=== PATIENT | male | born 1960 | race Caucasian/White ===

== ENCOUNTER 2019-04-03 11:20 | Emergency (ER) | payer MEDICAID ==
[~2019-04-03] VITALS: Ht 188 cm; Wt 204.1 kg
[~2019-04-03 11:20] MED LIST: ASPI81EC PO; ATENOLOL; CYCL0.05OP OP; DUREZOL; MECL25 PO; METR250 PO; MICARDIS; OMEP20ER PO
[2019-04-03] MEDS ORDERED: ELIQUIS5 MG PO (11:33)
[2019-04-03 12:08] LABS: BASOPHILS ABSOLUTE AUTO 0.03 K/mm3 (0.00-0.23); BASOPHILS PERCENT AUTO 0 % (0-2); EOSINOPHILS ABSOLUTE AUTO 0.31 K/mm3 (0.00-0.68); EOSINOPHILS PERCENT AUTO 4 % (0-6); Hematocrit 46.8 % (37.0-53.0); Hemoglobin 15.8 g/dL (13.5-17.5); IMMATURE GRAN ABSOLUTE AUTO 0.03 K/mm3 (0.00-0.10); IMMATURE GRAN PERCENT AUTO 0 % (0-1); LYMPHOCYTES ABSOLUTE AUTO 1.56 K/mm3 (0.84-5.20); LYMPHOCYTES PERCENT AUTO 20 % (21-46); MONOCYTES ABSOLUTE AUTO 0.64 K/mm3 (0.16-1.47); MONOCYTES PERCENT AUTO 8 % (4-13); Mean Corpuscular HGB Conc 33.8 g/dL (31.5-36.5); Mean Corpuscular Volume 95 fL (80-100); Mean Platelet Volume 9.9 fL (9.1-12.4); NEUTROPHILS ABSOLUTE AUTO 5.16 K/mm3 (1.96-9.15); NEUTROPHILS PERCENT AUTO 67 % (41-73); Platelet Count 205 K/mm3 (150-400); RDW Standard Deviation 47.5 fL (35.1-46.3); Red Blood Cell Count 4.93 M/mm3 (4.30-5.90); White Blood Cell Count 7.73 K/mm3 (4.00-11.30)
[2019-04-03 12:28] LABS: Alanine Aminotransfer (ALT/SGP 39 U/L (12-78); Albumin, Blood 3.5 g/dL (3.4-5.0); Albumin/Globulin Ratio 0.9 (0.8-1.8); Alk Phos 49 U/L (50-136); Anion Gap 7 mmol/L (6-16); Aspartate Aminotrans (AST/SGOT 22 U/L (12-37); Bilirubin, Total 0.7 mg/dL (0.1-1.0); Blood Urea Nitrogen 17 mg/dL (8-24); Bun/Creatinine Ratio 15.5 (12.0-20.0); CO2, Blood 26 mmol/L (21-32); Calcium, Blood 8.6 mg/dL (8.5-10.1); Chloride, Blood 106 mmol/L (98-108); Glomerular Filtration Rate >60 (60-); Glucose, Blood 121 mg/dL (70-99); Potassium, Blood 4.1 mmol/L (3.5-5.5); Sodium, Blood 139 mmol/L (136-145); Total Protein, Blood 7.5 g/dL (6.4-8.2); Troponin I <0.015 ng/mL (0.000-0.040)
[2019-04-03] MEDS ORDERED: MOTION RELIEF25 MG PO (12:52)
== END 2019-04-03 13:09 | disposition home or self-care (01) ==
LOC: ER 11:20
PROVIDERS: Physician Assistant
DX: I48.91 Unspecified atrial fibrillation (principal); I10 Essential (primary) hypertension; Z79.899 Other long term (current) drug therapy; Z79.82 Long term (current) use of aspirin; Z87.891 Personal history of nicotine dependence
CPT/HCPCS: 36415; 70450; 71046; 80053; 84484; 85025; 93005; 93010; 99284-25

== ENCOUNTER → 2023-06-24 | Outpatient (CLI) | payer MEDICARE, OTHER ==
[~2023-06-24] MED LIST changes: +ELIQUIS5 MG PO; +MOTION RELIEF25 MG PO
== END ==
LOC: LAB SHORT 14:02 → LAB 14:02
DX: J02.9 Acute pharyngitis, unspecified (principal)
CPT/HCPCS: 87081

== ENCOUNTER 2023-07-12 18:53 | Inpatient (IN) | payer MEDICARE, OTHER ==
[~2023-07-12] VITALS: Ht 188 cm; Wt 232.0 kg
[2023-07-12] MEDS ORDERED: CEPH500 PO (19:26)
[2023-07-12 19:34] LABS: pH Blood Venous 7.22 (7.34-7.37)
[2023-07-12 19:35] LABS: Base Excess Venous 0.9 mmol/L; PCO2 Venous 69.8 mmHg (38-42)
[2023-07-12] MEDS ORDERED: Ipratropium/Albuterol SulF 2.5-0.5MG/3 ML Amp INH ONE (19:40)
[2023-07-12] MEDS ORDERED: Furosemide 10 MG/ML 4ML Vial IV ONE (19:40)
[2023-07-12 19:42] LABS: BASOPHILS ABSOLUTE AUTO 0.06 K/mm3 (0.00-0.23); BASOPHILS PERCENT AUTO 0 % (0-2); EOSINOPHILS PERCENT AUTO 0 % (0-6); Hemoglobin 17.1 g/dL (13.5-17.5); IMMATURE GRAN ABSOLUTE AUTO 0.36 K/mm3 (0.00-0.10); IMMATURE GRAN PERCENT AUTO 2 % (0-1); LYMPHOCYTES ABSOLUTE AUTO 1.35 K/mm3 (0.84-5.20); LYMPHOCYTES PERCENT AUTO 8 % (21-46); MONOCYTES ABSOLUTE AUTO 1.75 K/mm3 (0.16-1.47); MONOCYTES PERCENT AUTO 10 % (4-13); Mean Corpuscular HGB 30.2 pg (26.0-34.0); Mean Corpuscular HGB Conc 30.3 g/dL (31.5-36.5); Mean Corpuscular Volume 100 fL (80-100); Mean Platelet Volume 10.5 fL (9.1-12.4); NEUTROPHILS ABSOLUTE AUTO 13.74 K/mm3 (1.96-9.15); NEUTROPHILS PERCENT AUTO 80 % (41-73); NRBC ABSOLUTE 0.12 K/mm3 (0.00-0.02); NRBC Auto 0.7 /100 WBC (0.0-0.2); Platelet Count 230 K/mm3 (150-400); RDW Coefficient Variation 16.2 % (11.7-14.2); RDW Standard Deviation 57.4 fL (35.1-46.3); Red Blood Cell Count 5.67 M/mm3 (4.30-5.90); White Blood Cell Count 17.26 K/mm3 (4.00-11.30)
[2023-07-12 19:46] LABS: Hematocrit 56.5 % (37.0-53.0)
[2023-07-12 19:54] LABS: Magnesium, Blood 2.3 mg/dL (1.6-2.4)
[2023-07-12] MEDS ORDERED: CefTRIAXone Sodium 1,000 MG in NS 50 ML IV ONE (20:15)
[2023-07-12] MEDS ORDERED: Azithromycin 500 MG in NS 250 ML IV ONE (20:15)
[2023-07-12] MEDS ORDERED: Diltiazem HCl 5 MG / ML 5ML Vial IV ONE (20:30)
[2023-07-12 20:41] LABS: Albumin, Blood 3.3 g/dL (3.4-5.0); Albumin/Globulin Ratio 0.7 (0.8-1.8); Bilirubin, Total 1.9 mg/dL (0.1-1.0); Bun/Creatinine Ratio 16.3 (12.0-20.0); Creatinine, Blood 2.39 mg/dL (0.60-1.20); Potassium, Blood 5.7 mmol/L (3.5-5.5); Total Protein, Blood 8.3 g/dL (6.4-8.2)
[2023-07-12 21:52] LABS: Base Excess Venous 3.4 mmol/L; Bicarbonate Venous 24.6 mmol/L (24.0-30.0); PCO2 Venous 75.5 mmHg (38-42); pH Blood Venous 7.22 (7.34-7.37)
[2023-07-12] MEDS ORDERED: Apixaban 5 MG Tab PO SCH (22:00)
[2023-07-12] MEDS ORDERED: Acetaminophen 325 MG TABLET PO PRN (22:00)
[2023-07-12] MEDS ORDERED: FLU VACC QS2023-24(6MOS UP)/PF 60 MCG/0.5 ML SYRINGE IM ONE (22:00)
[2023-07-12] MEDS ORDERED: Furosemide 10 MG/ML 4ML Vial IV SCH (22:00)
[2023-07-12 22:10] LABS: Influenza A, PCR NEGATIVE (NEGATIVE); Influenza B, PCR NEGATIVE (NEGATIVE); Resp Syncytial Virus, PCR NEGATIVE (NEGATIVE); SARS-Cov-2 (COVID-19) PCR, MMC NEGATIVE (NEGATIVE)
[2023-07-12] MEDS ORDERED: dilTIAZem HCL 125 MG in Dextrose 5% 100 ML IV SCH (22:30)
[2023-07-12 22:59] LABS: Source, Urine Foley catheter
[2023-07-12] MEDS ORDERED: Naloxone HCl 1MG / ML 2ML SYR IV ONE (23:00)
[2023-07-12 23:03] LABS: Blood, Urine 5+ (Neg); Glucose Qualitative, Urine Neg (Neg); Ketones, Urine 1+ (Neg); Leukocyte Esterase, Urine 3+ (Neg); Nitrite, Urine Pos (Neg); Protein, Urine 3+ (Neg); Specific Gravity, Urine 1.025 (1.003-1.022); Urobilinogen, Urine 4+ (Normal)
[2023-07-12 23:08] LABS: Appearance, Urine Cloudy (Clear); Bilirubin, Urine 2+ (Neg); Color, Urine Amber (P-Yellow)
[2023-07-12 23:11] LABS: Amorphous Light (0-Heavy); Bacteria Many /hpf; Hyaline Casts 0-2 /lpf (0-2); Mucus Heavy (0-Heavy); Squamous Epithelial Cells Few /hpf (Few); White Blood Cells, Urine 25-50 /hpf (0-5)
[2023-07-12 23:31] LABS: U Amphetamine Screen Not Detected; U Barbituate Screen Not Detected; U Benzodiazapine Screen Not Detected; U Buprenorphine Screen Not Detected; U Cannabinoids Screen Not Detected; U Cocaine Screen Not Detected; U Methadone Screen Not Detected; U Methamphetamine Screen Not Detected; U Opiates Screen Not Detected; U Oxycodone Screen Not Detected; U Phencyclidine Screen Not Detected
[2023-07-13] VITALS (94 sets, daily range): BP systolic 45–140; BP diastolic 21–98
[2023-07-13 01:25] LABS: Base Excess Venous 2.6 mmol/L; Bicarbonate Venous 23.8 mmol/L (24.0-30.0); PCO2 Venous 66.6 mmHg (38-42)
[2023-07-13 01:26] LABS: pH Blood Venous 7.26 (7.34-7.37)
[2023-07-13] MEDS ORDERED: Naloxone HCl 1MG / ML 2ML SYR IV ONE (02:30)
[2023-07-13] MEDS ORDERED: NS 1,000 ML IV SCH (02:50)
[2023-07-13 03:00] LABS: Base Excess Venous -0.1 mmol/L; Bicarbonate Venous 20.9 mmol/L (24.0-30.0); PCO2 Venous 67.3 mmHg (38-42); pH Blood Venous 7.22 (7.34-7.37)
[2023-07-13] MEDS ORDERED: Sodium Bicarb 8.4% 1 MEQ/ML 50 ML Vial IV ONE (03:15)
[2023-07-13 03:24] LABS: BASOPHILS ABSOLUTE AUTO 0.04 K/mm3 (0.00-0.23); BASOPHILS PERCENT AUTO 0 % (0-2); EOSINOPHILS PERCENT AUTO 0 % (0-6); Hematocrit 50.9 % (37.0-53.0); Hemoglobin 15.5 g/dL (13.5-17.5); IMMATURE GRAN ABSOLUTE AUTO 0.12 K/mm3 (0.00-0.10); IMMATURE GRAN PERCENT AUTO 1 % (0-1); LYMPHOCYTES ABSOLUTE AUTO 1.37 K/mm3 (0.84-5.20); LYMPHOCYTES PERCENT AUTO 8 % (21-46); MONOCYTES ABSOLUTE AUTO 1.79 K/mm3 (0.16-1.47); MONOCYTES PERCENT AUTO 11 % (4-13); Mean Corpuscular HGB 30.6 pg (26.0-34.0); Mean Corpuscular HGB Conc 30.5 g/dL (31.5-36.5); Mean Corpuscular Volume 100 fL (80-100); NEUTROPHILS ABSOLUTE AUTO 13.74 K/mm3 (1.96-9.15); NEUTROPHILS PERCENT AUTO 81 % (41-73); NRBC ABSOLUTE 0.06 K/mm3 (0.00-0.02); NRBC Auto 0.4 /100 WBC (0.0-0.2); Platelet Count 181 K/mm3 (150-400); RDW Coefficient Variation 15.9 % (11.7-14.2); RDW Standard Deviation 57.8 fL (35.1-46.3); Red Blood Cell Count 5.07 M/mm3 (4.30-5.90); White Blood Cell Count 17.06 K/mm3 (4.00-11.30)
[2023-07-13 03:51] LABS: Albumin/Globulin Ratio 0.7 (0.8-1.8); Bilirubin, Total 1.6 mg/dL (0.1-1.0); Bun/Creatinine Ratio 18.4 (12.0-20.0); Calcium, Blood 7.8 mg/dL (8.5-10.1); Creatinine, Blood 2.23 mg/dL (0.60-1.20); Globulin, Blood 4.2 g/dL (2.2-4.0); Potassium, Blood 5.3 mmol/L (3.5-5.5); Total Protein, Blood 7.2 g/dL (6.4-8.2)
[2023-07-13] MEDS ORDERED: Sodium Bicarb 8.4% 50 mEq Syringe IV ONE (04:00)
[2023-07-13 05:07] LABS: Bicarbonate Venous 26.3 mmol/L (24.0-30.0); PCO2 Venous 76.2 mmHg (38-42); pH Blood Venous 7.25 (7.34-7.37)
[2023-07-13] MEDS ORDERED: propofoL 100 ML IV SCH (05:30)
--- NOTE | 2023-07-13 05:30 | NUR ---
DR MAGALLON NOTIFED OF PT CRITICAL PH AND OVERALL WORSENING VBG. STATED HE WOULD BE TO THE BEDSIDE TO INTUBATE.
[2023-07-13] MEDS ORDERED: NS 1,000 ML IV ONE (05:53)
[2023-07-13] MEDS ORDERED: Pantoprazole Sodium 40 MG Injection IV SCH (06:00)
--- NOTE | 2023-07-13 07:33 | NUR ---
TIFFANY THOMAS PT WAS INTUBATED AT APPX 0541. ETT IS CURRENTLY INTACT AND PATENT TO THE VENT. CVL PLACED BY DR MAGALLON IN THE RIGHT IJ WELL. PLACEMENT WAS VERIFIED. REPORT WAS GIVEN AT BEDSIDE TO YOUSIF FAJARDO. PT IS AFIB ON THE ADAPTIVE PHYSICAL EDUCATION TEACHER. PT HAS A TEMP MARES INTACT PATENT AND DRAINING TO GRAVITY. BP HAVE BEEN ADEQUATE BUT LEVOPHED HAS BEEN ORDERED TO MAINTAIN MAP >65 IF NEEDED. PT HAS A RASH THAT DR HAWTHORNE IS AWARE OF AND HAS SEEN. OG TUBE WAS PLACED AFTER INTUBATION. PT WAS PLACED ON A BARIATRIC BED AT ADMISSION DUE TO HIS LARGE BODY HABITUS.
[2023-07-13 07:58] LABS: Anti-Xa UFH, PHA Monitoring <0.10 IU/mL; International Normalized Ratio 1.35; Prothrombin Time Results 13.9 Sec (9.7-11.5)
--- NOTE | 2023-07-13 08:21 | NUR ---
AM NOTE... ASSUMED CARE OF PT AT 0700. PT IS INTUBATED AC/PC: PEEP 10 AND 100% WITH O2 SATS>92% L/S A VERY DIM T/O. PROPOFOL WAS STARTED FOR VENT COMPLIANCE THIS WAS TITRATED UP FROM 20MCG QUICKLY UP TO 50MCG, RASS -1. LEVOPHED WAS STARTED AND IS CURRENTLY RUNNING AT 4MCG/MIN TO KEEP MAPS>65. HIS BLE HAVE 3+ EDEMA, THEY ARE SCALY, AND VERY DUSKY, PULSES FOUND WTIH DOPPLER. HE IS IN AFIB IN THE 100-110'S. PUPILS ARE PINPOINT AT THE TIME OF THIS ASSESSMENT. OG TUBE IS SET OT LIS, A SMALL AMOUNT OF BILE IS NOTED IN THE OG TUBE. PT HAS COPIOUS AMOUNTS OF ORAL SECRETIONS AND MODERATE AMOUNT OF THICK MAYS SECRETIONS SUCTIONED VIA THE ET TUBE. TEMP MARES IS PATENT AND DRAINING TO GRAVITY. WILL CONTINUE TO MONITOR.
[2023-07-13] MEDS ORDERED: Heparin Sodium,Porcine/0.5 NS 500 ML IV SCH (08:50)
[2023-07-13] MEDS ORDERED: fentaNYL citrate 25 MCG/ML 30ML Bag IV PRN ×2 (09:00→10:55)
[2023-07-13] MEDS ORDERED: Lactobacil 2-S.Thermo-Bifido 1 1 Cap PO SCH (09:00)
[2023-07-13] MEDS ORDERED: NS 250 ML IV PRN (09:20)
[2023-07-13 09:23] LABS: PCO2 Arterial 41.3 mmHg (35-45); PO2 Arterial 86.4 mmHg (80-100); pH Blood Arterial 7.44 (7.35-7.45)
[2023-07-13] MEDS ORDERED: Furosemide 10 MG/ML 4ML Vial IV ONE (11:30)
[2023-07-13] MEDS ORDERED: Magnesium Hydroxide Conc 10 ML UDC PT PRN (12:30)
[2023-07-13] MEDS ORDERED: Bisacodyl 10 MG Supp PR PRN (12:30)
[2023-07-13] MEDS ORDERED: Docusate Sodium 100 MG UDC PT PRN (12:30)
[2023-07-13] MEDS ORDERED: Thiamine HCl 100 MG Tab PT ONE (12:45)
--- NOTE | 2023-07-13 14:04 | NUR ---
TUBE FEEDS.... TUBE FEEDS STARTED AT 1400 PER ORDERS AT 25MLS/HR.
[2023-07-13] MEDS ORDERED: CefTRIAXone Sodium 1,000 MG in NS 50 ML IV SCH (15:00)
[2023-07-13] MEDS ORDERED: Azithromycin 500 MG in NS 250 ML IV SCH (15:00)
[2023-07-13] MEDS ORDERED: Hydrogen Peroxide 1.5 % Solution MT SCH (16:00)
[2023-07-13] MEDS ORDERED: Dose Adjust by Pharmacy XX STA (16:43)
[2023-07-13] MEDS ORDERED: Midazolam HCl 1MG / ML 2ML Vial XX ONE (16:58)
[2023-07-13] MEDS ORDERED: Ketamine HCl 100 MG / ML 5ML Vial XX ONE (16:58)
[2023-07-13] MEDS ORDERED: Rocuronium Bromide 10 MG/ML 5ML Injection IV ONE (16:58)
--- NOTE | 2023-07-13 18:12 | NUR ---
SHIFT SUMMARY... PT CONTINUES TO BE ON THE VENT WITH NEW SETTINGS OF AC/VC:20/470/10/80% WITH O2 SATS>92%. L/S CONTINUES TO BE VERY DIM. HEPARIN DRIP WAS STARTED PER ORDERS AT 15U/KG/HR. LEVOPHED DRIP WAS STOPPED AT 1715 WITH MAPS>65. PROPOFOL WAS DECREASED DOWN TO 40MCG/KG, FENTANYL NUTRITIONAL SERVICES DIRECTOR IS RUNNING AT 75MCG/HR. MARES IS PATENT AND DRAINING TO GRAVITY. ECHO AND ABD US WERE DONE PER ORDERS RESULTS IN THE CHART. TUBE FEEDS STARTED PER ORDERS AT 25MLS/HR. THE PT'S DAUGHTER AND SON WERE AT THE BEDSIDE OFF AND ON T/O THIS SHIFT. CALL LIGHT IN REACH WILL CONTINUE TO MONITOR UNTIL REPORT IS GIVEN TO ONCOMING RN.
[2023-07-13] MEDS ORDERED: Chlorhexidine Mouth Care 15 ML UDC MT SCH (20:00)
[2023-07-13] MEDS ORDERED: Folic Acid 1 MG TAB PT SCH (21:00)
[2023-07-13] MEDS ORDERED: Thiamine HCl 100 MG Tab PT SCH (21:00)
[2023-07-14] VITALS (85 sets, daily range): BP systolic 82–163; BP diastolic 53–115
[2023-07-14] MEDS ORDERED: Clarify Drug Order XX ONE ×2 (00:40→05:05)
[2023-07-14 04:41] LABS: BASOPHILS ABSOLUTE AUTO 0.04 K/mm3 (0.00-0.23); BASOPHILS PERCENT AUTO 0 % (0-2); EOSINOPHILS ABSOLUTE AUTO 0.15 K/mm3 (0.00-0.68); EOSINOPHILS PERCENT AUTO 1 % (0-6); Hematocrit 46.2 % (37.0-53.0); Hemoglobin 14.8 g/dL (13.5-17.5); IMMATURE GRAN ABSOLUTE AUTO 0.11 K/mm3 (0.00-0.10); IMMATURE GRAN PERCENT AUTO 1 % (0-1); LYMPHOCYTES ABSOLUTE AUTO 1.72 K/mm3 (0.84-5.20); LYMPHOCYTES PERCENT AUTO 12 % (21-46); MONOCYTES PERCENT AUTO 8 % (4-13); Mean Corpuscular HGB 30.1 pg (26.0-34.0); Mean Platelet Volume 10.1 fL (9.1-12.4); NEUTROPHILS ABSOLUTE AUTO 10.83 K/mm3 (1.96-9.15); NEUTROPHILS PERCENT AUTO 78 % (41-73); NRBC ABSOLUTE 0.02 K/mm3 (0.00-0.02); NRBC Auto 0.1 /100 WBC (0.0-0.2); Platelet Count 160 K/mm3 (150-400); RDW Coefficient Variation 16.4 % (11.7-14.2); RDW Standard Deviation 55.3 fL (35.1-46.3); Red Blood Cell Count 4.92 M/mm3 (4.30-5.90); White Blood Cell Count 13.95 K/mm3 (4.00-11.30)
[2023-07-14 04:43] LABS: Mean Corpuscular Volume 94 fL (80-100)
[2023-07-14 05:14] LABS: Albumin, Blood 2.4 g/dL (3.4-5.0); Albumin/Globulin Ratio 0.7 (0.8-1.8); Bilirubin, Total 1.7 mg/dL (0.1-1.0); Bun/Creatinine Ratio 27.2 (12.0-20.0); Calcium, Blood 7.9 mg/dL (8.5-10.1); Creatinine, Blood 1.84 mg/dL (0.60-1.20); Globulin, Blood 3.5 g/dL (2.2-4.0); Magnesium, Blood 1.9 mg/dL (1.6-2.4); Potassium, Blood 3.4 mmol/L (3.5-5.5); Total Protein, Blood 5.9 g/dL (6.4-8.2)
[2023-07-14] MEDS ORDERED: Potassium Chl 20MEQ/Water100ML 100 ML IV STA (07:19)
--- NOTE | 2023-07-14 08:00 | NUR ---
AM NOTE... ASSUMED CARE OF PT AT 0700, PT INTUBATED AND SEDATED ON 40MCG OF PROPOFOL AND 75MCG/HR FENTANYL HOUSE WORKER. LEVOPHED RUNNING AT 2MCG TO KEEP MAPS >65 THIS WAS STOPPED AT THE TIME OF THIS ASSESSMENT. ET TUBE IS 7.5 AND 24 AT THE TOP TEETH/GUMS. VENT SETTINGS ARE AC/VC: 20/470/10/80% WITH O2 SATS>90%. L/S COARSE IN THE UPPER LOBES AND DIM T/O MORE SO ON THE LEFT THAN THE RIGHT. HE IS IN AFIB IN THE 80'S-90'S, BP IS SOFT BUT STABLE WITH MAPS>65 OFF OF THE LEVOPHED. OG TUBE IS PATENT AND RUNNING TUBE FEEDS AT 25MLS/HR. BT PRESENT AND HYPOACTIVE, ABD IS LARGE AND SOFT TO PALPATION. TEMP MARES IS PATENT AND DRAINING DARK YELLOW URINE WITH SEDIMENT TO GRAVITY. WILL CONTINUE TO MONITOR.
--- NOTE | 2023-07-14 08:04 | NUR ---
SHIFT SUMMERY NO ACUTE CHANGES TO PT PLAN OF CARE OVERNIGHT
[2023-07-14] MEDS ORDERED: Miconazole Nitrate 2% 85 GM PWD TOP SCH (09:00)
[2023-07-14] MEDS ORDERED: Tetrahydrozoline 0.05% Opth Soln 15 ML BOTHEYES PRN (09:00)
[2023-07-14] MEDS ORDERED: Furosemide 10 MG/ML 4ML Vial IV SCH (09:00)
[2023-07-14] MEDS ORDERED: Atropine Sulfate 1% Opth Soln 2ML BTL SL PRN (10:10)
[2023-07-14] MEDS ORDERED: HYDROmorphone HCl/Pf 1MG SYR IV PRN (10:10)
[2023-07-14] MEDS ORDERED: Morphine Sulfate 20 MG/1ML 1 ML Oral Syringe SL PRN (10:10)
[2023-07-14] MEDS ORDERED: Scopolamine Hydrobromide Patch TOP PRN (10:10)
[2023-07-14] MEDS ORDERED: Morphine Sulfate 10 MG/ML 1MLSYR INH PRN (10:10)
[2023-07-14] MEDS ORDERED: OxyCODONE HCl Soln 20 MG/ML 1 ML Oral SYR SL PRN (10:10)
[2023-07-14] MEDS ORDERED: Haloperidol Lactate Inj. 5 MG/ML Injection IV PRN (10:10)
[2023-07-14] MEDS ORDERED: Acetaminophen 650 MG Supp PR PRN (10:10)
[2023-07-14] MEDS ORDERED: Morphine Sulfate 10 MG/ML 1MLSYR IV PRN (10:10)
[2023-07-14] MEDS ORDERED: LORazepam 2 MG/ML 1ML Injection IV PRN (10:10)
--- NOTE | 2023-07-14 10:20 | NUR ---
Comfort care Spoke with nursing after the ICU IDT meeting this morning. Family has decided to place pt on comfort care. Orders have already been placed. No family currently in pt's room. Nursing will contact PC for support for family prn. Pt to remain on ventilator until family is ready. PC to remain available to assist with pt/family support and symptom management prn.
[2023-07-14] MEDS ORDERED: dilTIAZem HCL 125 MG in Dextrose 5% 100 ML IV SCH (13:05)
[2023-07-14] MEDS ORDERED: Heparin Sodium,Porcine/0.5 NS 500 ML IV SCH (13:15)
[2023-07-14] MEDS ORDERED: CefTRIAXone Sodium 1,000 MG in NS 50 ML IV SCH (13:25)
[2023-07-14] MEDS ORDERED: Azithromycin 500 MG in NS 250 ML IV SCH (13:25)
[2023-07-14 13:59] LABS: PCO2 Arterial 45.3 mmHg (35-45); PO2 Arterial 79.4 mmHg (80-100); pH Blood Arterial 7.42 (7.35-7.45)
--- NOTE | 2023-07-14 14:32 | NUR ---
Called to ICU. Decision was made earlier today for comfort care. Pt was extubated, woke up and was alert and told the bedside nurse that he didn't want to and that he wanted everything done. Pt was on bipap, resting with eyes closed with a HR in the 140-150s when this news writer went to ICU. Waiting on Dr. Edwards to come and speak with pt and family to determine goals of care. Went to ICU waiting room and spoke with family members. Pt's mother, pt's brother, Michael, son, Shaheed, and dtr Ama are in waiting room. Updated them that Colton is awake and is telling staff he doesn't want to . Shaheed states that they (he and sister Ama) made the decision for comfort care based on the many years of their father's past statements and personal choices. Emotional support given. Shaheed states that they want to support what Colton wants, however they want to make sure he understands the ramifications of the decision he is making. Pt's brother Michael spoke with pt after he was extubated this afternoon and Michael stated that Colton told he that he wants to live. Family members verbalize understanding that Colton's recovery could be a very long road and that he may require a higher level of care then he had prior to this admission. Shaheed and Ama went to pt's room to spend time with him after this news writer spoke with them. They are waiting for Dr. Edwards to come and speak to all of them to determine a plan of care going forward. PC will follow and assist with advanced care planning and symptom managment as needed.
--- NOTE | 2023-07-14 15:02 | NUR ---
PT UPDATE.... AT AROUND 1000 THE PT'S DAUGHTER AND SON WERE AT THE BEDSIDE WITH THE PT. THEY FELT THAT THE PT WOULD NOT WANT TO BE ON THE VENT AND THE [facility] CONSEQUENCES THAT WOULD FOLLOW IF THE PT WERE TO NEED A TRACH AND [facility] CARE/REHAB. THE PT'S FAMILY PLANNED TO MAKE THE PT COMFORT CARE AND EXTUBATE. DR. PRINCE WAS AWARE OF THIS PLAN. THE PT WAS CHANGED TO A DNR AND AT 1240 HE WAS EXTUBATED. ONCE HE WAS EXTUBATED THE PT WAS ASSESSED AND NOTED TO BE A&Ox4, HE STATED THAT HE COULD NOT BREATH AND WANTED TO LIVE. THIS RN ASKED THE PT IF HE WERE TO STOP BREATHING OR HIS HEART STOP IF HE WANTED CPR AND BACK ON THE VENT WITH THE TUBE DOWN HIS THROAT, AND HE SAID "YES I WANT EVERYTHING DONE TO LIVE." DR. PRINCE WAS NOTIFIED, CODE STATUS WAS CHANGED BACK TO FULL CODE. HE QUICKLY WENT FROM 2L NC TO AN OXYMASK AT 15L THEN BIPAP AT 16/10 AND 100%. THE PT'S FAMILY WAS NOTIFIED OF THE CHANGE IN THE PT'S CONDITION AND HIS DECISION TO BE A FULL CODE. PT'S HR INCRESED FROM AFIB IN THE 710'S-90'S TO AFIB W/RVR 150'S-160'S, HE WAS STARTED ON THE CARDIZEM DRIP WHICH WAS TITRATED UP TO 15MG/HR, CURRENT HR IS IN THE 130'S-140'S BP IS STABLE WITH MAPS >75 AT THIS TIME. WILL CONTINUE TO MONITOR.
--- NOTE | 2023-07-14 15:45 | NUR ---
Returned to pt's room to check in on pt and family. Nursing reports Dr. Edwards met with pt and his family. Decision was made to continue care at this kwame. Pt status changed back to full code, discontinue comfort care. Son Shaheed and pt's mother are in agreement with pt's wishes at this time. Pt awake in room. Bipap in place, conversing with family at bedside. PC to remain available for symptom managment and advanced care planning as needed.
[2023-07-14] MEDS ORDERED: Furosemide 10 MG/ML 4ML Vial IV ONE (16:00)
--- NOTE | 2023-07-14 17:42 | NUR ---
SHIFT SUMMARY... PT CONTINUES TO BE A&Ox4, ON THE BIPAP, SETTINGS ARE 16/10 AND 100% WITH O2 SATS IN THE 90'S. THE HEPARIN DRIP WAS RESTARTED PER PHARMACY ORDERS. CARDIZEM DRIP IS RUNNING AT 20MG/HR, PT'S HR IS IN THE 110'S-120'S, BP IS STABLE WITH MAPS>75. PT'S MARES IS PATENT AND DRAINING TO GRAVITY. PT HAS NOT HAD A BM SINCE ADMIT. PT REFUSED REPOSITIONING SINCE 1400. CALL LIGHT IN REACH WILL CONTINUE TO MONITOR UNTIL REPORT IS GIVEN TO ONCOMING RN.
--- NOTE | 2023-07-14 23:18 | NUR ---
ASSUMED CARE OF PT FROM TANA VILLAVICENCIO AT 2300. REPORT RECEIVED. PT PRESENTS IN BED. BIPAP ON. WILL REVIEW CHART AND PLAN OF CARE FOR THIS PT.
[2023-07-15] VITALS (47 sets, daily range): BP systolic 85–134; BP diastolic 58–105
[2023-07-15 05:05] LABS: BASOPHILS ABSOLUTE AUTO 0.03 K/mm3 (0.00-0.23); BASOPHILS PERCENT AUTO 0 % (0-2); EOSINOPHILS ABSOLUTE AUTO 0.07 K/mm3 (0.00-0.68); EOSINOPHILS PERCENT AUTO 1 % (0-6); Hematocrit 46.5 % (37.0-53.0); Hemoglobin 14.8 g/dL (13.5-17.5); IMMATURE GRAN ABSOLUTE AUTO 0.12 K/mm3 (0.00-0.10); IMMATURE GRAN PERCENT AUTO 1 % (0-1); LYMPHOCYTES ABSOLUTE AUTO 1.47 K/mm3 (0.84-5.20); LYMPHOCYTES PERCENT AUTO 11 % (21-46); MONOCYTES ABSOLUTE AUTO 1.56 K/mm3 (0.16-1.47); MONOCYTES PERCENT AUTO 11 % (4-13); Mean Corpuscular HGB 30.3 pg (26.0-34.0); Mean Corpuscular HGB Conc 31.8 g/dL (31.5-36.5); Mean Corpuscular Volume 95 fL (80-100); Mean Platelet Volume 9.9 fL (9.1-12.4); NEUTROPHILS PERCENT AUTO 76 % (41-73); Platelet Count 171 K/mm3 (150-400); RDW Coefficient Variation 16.5 % (11.7-14.2); RDW Standard Deviation 57.1 fL (35.1-46.3); Red Blood Cell Count 4.88 M/mm3 (4.30-5.90); White Blood Cell Count 13.65 K/mm3 (4.00-11.30)
[2023-07-15] MEDS ORDERED: Dose Adjust by Pharmacy XX STA ×2 (05:28→12:50)
[2023-07-15 05:31] LABS: Albumin, Blood 2.5 g/dL (3.4-5.0); Albumin/Globulin Ratio 0.6 (0.8-1.8); Bun/Creatinine Ratio 30.8 (12.0-20.0); Calcium, Blood 8.2 mg/dL (8.5-10.1); Creatinine, Blood 1.56 mg/dL (0.60-1.20); Globulin, Blood 4.2 g/dL (2.2-4.0); Phosphorus, Blood 5.2 mg/dL (2.5-4.9); Potassium, Blood 4.1 mmol/L (3.5-5.5); Total Protein, Blood 6.7 g/dL (6.4-8.2)
--- NOTE | 2023-07-15 07:00 | NUR ---
ASSUMPTION OF CARE PT RECEIVING HEPARIN 16UNITS/KG/HR AND CARDIZEM 10MG/HR. HE WAKENS TO VERBAL STIMULI. HE IS ON BIPAP 16//80%. SINUS RHYTHM ON MONITOR WITH RATE IN 90S. BP STABLE. TEMP MARES PATENT AND DRAINING DARK YELLOW URINE TO GRAVITY. PT IN BARIATRIC BED, CALL LIGHT WITHIN REACH.
[2023-07-15] MEDS ORDERED: Azithromycin 500 MG in NS 250 ML IV SCH (09:00)
[2023-07-15] MEDS ORDERED: LevoFLOXacin 750 MG/D5W 150ML 150 ML IV SCH (09:00)
[2023-07-15] MEDS ORDERED: CefTRIAXone Sodium 1,000 MG in NS 50 ML IV SCH (09:00)
[2023-07-15] MEDS ORDERED: Magnesium Hydroxide Conc 10 ML UDC PO PRN (11:30)
[2023-07-15] MEDS ORDERED: Docusate Sodium 250 MG Cap PO SCH (11:30)
--- NOTE | 2023-07-15 13:12 | NUR ---
UPDATE PT TOLERATED BREAK FROM BIPAP WITH 12L HFNC FOR APPROXIMATELY AN HOUR. PT PASSED BEDSIDE SWALLOW WITHOUT DIFFICULTY. PT C/O FEELING CONSTIPATED, BOWEL REGIMEN STARTED. PT VISITS WITH BROTHER AT BEDSIDE. HE REPORTS FEELING TIRED AND WOULD LIKE TO REST, PLACED ON BIPAP WITH PREVIOUS SETTINGS 16/10/45%.
[2023-07-15] MEDS ORDERED: Metoprolol Succinate 25 MG TABCR PO SCH (13:35)
[2023-07-15] MEDS ORDERED: Apixaban 5 MG Tab PO SCH (14:00)
--- NOTE | 2023-07-15 17:58 | NUR ---
SHIFT SUMMARY PT HAS BEEN ON BIPAP FOR MOST OF THE DAY WITH SETTINGS 18/10/45%. HE HAS HAD TWO BREAKS FROM BIPAP WITH HFNC BETWEEN 12-14L. PT TOLERATES WELL BUT OCCASIONALLY REQUIRES REMINDERS TO BREATHE THROUGH HIS NOSE. HE REMAINS ALERT AND ORIENTED, ASSISTS WITH CARE ABLE. LUNGS ARE CLEAR, DIMINISHED. AFIB ON MONITOR WITH RATE IN 90S, BP STABLE. PT PASSED BEDSIDE SWALLOW. PT PROVIDED DINNER TRAY BUT ONLY ATE A FEW BITES. PT C/O FEELING CONSTIPATED THIS AM, BEGAN BOWEL REGIMEN. PT NOW HAS LIQUID STOOL. TEMP MARES PATENT AND DRAINING CLOUDY TEA URINE TO GRAVITY WITH 900ML OUTPUT THIS SHIFT. FAMILY AT BEDSIDE INTERMITTENTLY THROUGHOUT THE DAY. BED CONTROL AND CALL LIGHT WITHIN REACH.
--- NOTE | 2023-07-15 20:00 | NUR ---
ASSUMED CARE OF PT AT 1900. REPORT RECEIVED AT BEDSIDE. PT PRESENTS IN BED. WEARING HIGH FLOW O2. VISITING WITH FAMILY. PT ALERT AND ORIENTED, PLEASANT AND COOPERATIVE WITH CARE. WILL REVIEW CHART AND PLAN OF CARE FOR THIS PT.
[2023-07-16] VITALS (47 sets, daily range): BP systolic 72–131; BP diastolic 44–88
[2023-07-16 05:16] LABS: BASOPHILS ABSOLUTE AUTO 0.02 K/mm3 (0.00-0.23); BASOPHILS PERCENT AUTO 0 % (0-2); EOSINOPHILS ABSOLUTE AUTO 0.08 K/mm3 (0.00-0.68); EOSINOPHILS PERCENT AUTO 1 % (0-6); Hematocrit 45.4 % (37.0-53.0); Hemoglobin 14.2 g/dL (13.5-17.5); IMMATURE GRAN ABSOLUTE AUTO 0.09 K/mm3 (0.00-0.10); IMMATURE GRAN PERCENT AUTO 1 % (0-1); LYMPHOCYTES ABSOLUTE AUTO 1.08 K/mm3 (0.84-5.20); LYMPHOCYTES PERCENT AUTO 10 % (21-46); MONOCYTES ABSOLUTE AUTO 1.49 K/mm3 (0.16-1.47); MONOCYTES PERCENT AUTO 14 % (4-13); Mean Corpuscular HGB 30.3 pg (26.0-34.0); Mean Corpuscular HGB Conc 31.3 g/dL (31.5-36.5); Mean Corpuscular Volume 97 fL (80-100); Mean Platelet Volume 9.8 fL (9.1-12.4); NEUTROPHILS ABSOLUTE AUTO 8.02 K/mm3 (1.96-9.15); NEUTROPHILS PERCENT AUTO 75 % (41-73); Platelet Count 167 K/mm3 (150-400); RDW Coefficient Variation 16.4 % (11.7-14.2); RDW Standard Deviation 57.6 fL (35.1-46.3); Red Blood Cell Count 4.69 M/mm3 (4.30-5.90); White Blood Cell Count 10.78 K/mm3 (4.00-11.30)
[2023-07-16 05:41] LABS: Albumin, Blood 2.5 g/dL (3.4-5.0); Albumin/Globulin Ratio 0.6 (0.8-1.8); Bilirubin, Total 1.6 mg/dL (0.1-1.0); Bun/Creatinine Ratio 36.5 (12.0-20.0); Calcium, Blood 8.6 mg/dL (8.5-10.1); Creatinine, Blood 1.37 mg/dL (0.60-1.20); Globulin, Blood 4.5 g/dL (2.2-4.0); Magnesium, Blood 2.5 mg/dL (1.6-2.4); Phosphorus, Blood 4.8 mg/dL (2.5-4.9); Potassium, Blood 4.2 mmol/L (3.5-5.5)
--- NOTE | 2023-07-16 05:52 | NUR ---
PT HAS REMAINED ON BIPAP MASK THROUGHOUT THE NIGHT. HAS MAINTAINED O2 SATURATIONS > 90 PERCENT. NO COMPLAINTS OF DYSPNEA. PT HAS OCCASSIONAL MOIST COUGH. PROVIDED YAUNKEUR FOR PT TO SELF CLEAR HIS SECRETIONS. PT VOICES THIS IS HELPFUL. WILL CONTINUE TO MONITOR PT, AND WILL REPORT OFF TO ONCOMING RN.
--- NOTE | 2023-07-16 07:00 | NUR ---
ASSUMPTION OF CARE PT WAKENS TO VERBAL STIMULI. HE IS ON BIPAP 16/10/45%. PT TRANSITIONED TO 12L HFNC. SPO2 >93%, PT DENIES SOB AND VERBALIZES UNDERSTANDING OF BREATHING THROUGH HIS NOSE. PT IS ALERT AND ORIENTED, PARTICIPATES IN CONVERSATION WITH STAFF AND FAMILY AT BEDSIDE. AFIB ON MONITOR WITH RATE IN 80S-90S. BP STABLE WITH MAP >65. MARES PATENT AND DRAINING TEA COLORED URINE TO GRAVITY. BED CONTROL AND CALL LIGHT WITHIN REACH.
--- NOTE | 2023-07-16 13:00 | NUR ---
Met with Colton this afternoon in his room. He is on O2 by CO and had just finished eating. Allowed him to discuss his feelings of his current situation. Colton verbalized struggles with family relationships and stressors from his childhood growing up. He reports that he's 63 and that "Those things that happened then shouldn't bother me but they do." Offered to have therapist respiratory come and speak with him, he agreed that he would like that. Colton states he knows that he is the only one who can change his situation and that it's up to him to make the changes. Emotional support given. Nursing updated. Will place spiritual care consult. PC to follow for continued advanced care planning, symptom management and support.
--- NOTE | 2023-07-16 13:57 | NUR ---
Pastoral care visitation conducted. Pt was cordial and presented as welcoming upon introductory salutations. Pt proceeded to share about his current situation and well-being. Opportunity for reflection was given with validating feedback offered. Pt shared about his life struggles and history. Emotional guidance and continued empathic listening provided. Prayer was offered and readily accepted. Pt remained amiable and proceeded to rest. Pastoral support to remain available prospectively.
--- NOTE | 2023-07-16 17:17 | NUR ---
UPDATE PT HAS BEEN TOLERATING BREAKS FROM THE BIPAP AND WEARING 12L HFNC. PT REMAINS ALERT AND ORIENTED WITH PLEASANT AFFECT. PT HAS BEEN PRACTICING EXERCISES AND ASSISTING WITH CARE ABLE. DAUGHTER UPDATED VIA TELEPHONE.
--- NOTE | 2023-07-16 18:31 | NUR ---
SHIFT SUMMARY PT HAS EITHER BEEN ON BIPAP 16//45% OR 12L HFNC THROUGHOUT THE DAY. HE REMAINS ALERT AND ORIENTED WITH PLEASANT AFFECT. PT REPORTS RESTING WELL LAST NIGHT AND FEELING MOTIVATED TO PERFORM EXERCISES. PT IS ABLE TO ASSIST WITH CARE MORE THAN YESTERDAY. HE REMAINS IN AFIB WITH RATE IN 80S-90S. BP STABLE. TEMP MARES PATENT AND DRAINING TEA COLORED URINE TO GRAVITY. CALL LIGHT WITHIN REACH.
--- NOTE | 2023-07-16 22:50 | NUR ---
ASSUMED CARE OF PT AT 1900. REPORT RECEIVED. PT PRESENTS IN BED. ON HIGH FLOW NASAL CANNULA. PT'S SATURATIONS REMAIN NEAR 90 PERCENT. DISCUSSION OF PT GOING BACK TO BIPAP THIS EVENING FOR THE NIGHT. PT AGREES WITH THIS PLAN. HE STATES THAT HE FELT THIS DAY WENT BETTER. SPEAKS WELL OF BEING TO GO HOME AND BECOMING MORE ACTIVE AND IMPROVING HIS HEALTH WELL NOT CONSUMING ALCOHOL. ENCOURAGED PT WITH THIS PLAN. WILL REVIEW CHART AND PLAN OF CARE FOR THIS PT.
[2023-07-17] VITALS (16 sets, daily range): BP systolic 102–138; BP diastolic 71–103
--- NOTE | 2023-07-17 06:30 | NUR ---
HAVE REMOVED PT'S MARES CATHETER WITHOUT ISSUES. PT TO CALL WHEN HE NEEDS ASSIST TO VOID. PT HAS BEEN ABLE TO REST THIS NIGHT. PT AGAIN, SPEAKS FAVORABLY ABOUT HIS CHANCE TO PURSUE SOBRIETY AND ENGAGE IN PROPER NUTRITION AT HOME. STATES THAT HIS SISTER HAS ALSO HAD GASTRIC BYPASS AND HAS A MEAL PLAN THAT HE WANTS TO TRY.
[2023-07-17 06:41] LABS: BASOPHILS ABSOLUTE AUTO 0.01 K/mm3 (0.00-0.23); BASOPHILS PERCENT AUTO 0 % (0-2); EOSINOPHILS ABSOLUTE AUTO 0.23 K/mm3 (0.00-0.68); EOSINOPHILS PERCENT AUTO 3 % (0-6); Hematocrit 45.3 % (37.0-53.0); Hemoglobin 13.9 g/dL (13.5-17.5); IMMATURE GRAN ABSOLUTE AUTO 0.08 K/mm3 (0.00-0.10); IMMATURE GRAN PERCENT AUTO 1 % (0-1); LYMPHOCYTES ABSOLUTE AUTO 1.25 K/mm3 (0.84-5.20); LYMPHOCYTES PERCENT AUTO 14 % (21-46); MONOCYTES ABSOLUTE AUTO 1.47 K/mm3 (0.16-1.47); MONOCYTES PERCENT AUTO 16 % (4-13); Mean Corpuscular HGB 30.3 pg (26.0-34.0); Mean Corpuscular HGB Conc 30.7 g/dL (31.5-36.5); Mean Corpuscular Volume 99 fL (80-100); Mean Platelet Volume 9.9 fL (9.1-12.4); NEUTROPHILS ABSOLUTE AUTO 6.25 K/mm3 (1.96-9.15); NEUTROPHILS PERCENT AUTO 67 % (41-73); Platelet Count 177 K/mm3 (150-400); RDW Coefficient Variation 16.1 % (11.7-14.2); RDW Standard Deviation 58.4 fL (35.1-46.3); Red Blood Cell Count 4.59 M/mm3 (4.30-5.90); White Blood Cell Count 9.29 K/mm3 (4.00-11.30)
--- NOTE | 2023-07-17 07:00 | NUR ---
ASSUME CARE: I have assumed care of this patient.
[2023-07-17 07:02] LABS: Magnesium, Blood 2.6 mg/dL (1.6-2.4)
[2023-07-17 07:14] LABS: Anion Gap Unable to Calculate mmol/L (6-16); Blood Urea Nitrogen 51 mg/dL (8-24); Bun/Creatinine Ratio 43.2 (12.0-20.0); CO2, Blood 34 mmol/L (21-32); Calcium, Blood 8.8 mg/dL (8.5-10.1); Chloride, Blood 105 mmol/L (98-108); Creatinine, Blood 1.18 mg/dL (0.60-1.20); Glomerular Filtration Rate 70 (60-); Glucose, Blood 94 mg/dL (70-99); Phosphorus, Blood 3.7 mg/dL (2.5-4.9); Sodium, Blood 138 mmol/L (136-145)
--- NOTE | 2023-07-17 18:53 | NUR ---
SHIFT SUMMARY: Pt changed to PCU status this morning. He has tolerated nasal cannula at 4-6L throughout the day. Good PO fluid intake. Pt has been working to take less food intake as he has had gastric bypass surgery in the past. He has been working to mobilize in bed by pushing to turn and boost himself with RN encouragement. Right IJ discontinued without issue. PIV placed in right forearm.
[2023-07-18] VITALS: BP 109/67
[2023-07-18 03:51] LABS: BASOPHILS ABSOLUTE AUTO 0.02 K/mm3 (0.00-0.23); BASOPHILS PERCENT AUTO 0 % (0-2); EOSINOPHILS ABSOLUTE AUTO 0.27 K/mm3 (0.00-0.68); EOSINOPHILS PERCENT AUTO 3 % (0-6); Hematocrit 47.2 % (37.0-53.0); Hemoglobin 14.4 g/dL (13.5-17.5); IMMATURE GRAN ABSOLUTE AUTO 0.06 K/mm3 (0.00-0.10); IMMATURE GRAN PERCENT AUTO 1 % (0-1); LYMPHOCYTES ABSOLUTE AUTO 1.27 K/mm3 (0.84-5.20); LYMPHOCYTES PERCENT AUTO 14 % (21-46); MONOCYTES ABSOLUTE AUTO 1.61 K/mm3 (0.16-1.47); MONOCYTES PERCENT AUTO 18 % (4-13); Mean Corpuscular HGB 30.3 pg (26.0-34.0); Mean Corpuscular HGB Conc 30.5 g/dL (31.5-36.5); Mean Corpuscular Volume 99 fL (80-100); Mean Platelet Volume 10.1 fL (9.1-12.4); NEUTROPHILS PERCENT AUTO 64 % (41-73); Platelet Count 180 K/mm3 (150-400); RDW Coefficient Variation 15.9 % (11.7-14.2); RDW Standard Deviation 58.3 fL (35.1-46.3); Red Blood Cell Count 4.76 M/mm3 (4.30-5.90); White Blood Cell Count 9.03 K/mm3 (4.00-11.30)
[2023-07-18 04:00] VITALS: BP 102/61
[2023-07-18 04:11] LABS: Magnesium, Blood 2.7 mg/dL (1.6-2.4)
[2023-07-18 04:17] LABS: Alanine Aminotransfer (ALT/SGP 128 U/L (12-78); Albumin, Blood 2.7 g/dL (3.4-5.0); Albumin/Globulin Ratio 0.6 (0.8-1.8); Alk Phos 50 U/L (50-136); Anion Gap Unable to Calculate mmol/L (6-16); Aspartate Aminotrans (AST/SGOT 35 U/L (12-37); Bilirubin, Total 1.2 mg/dL (0.1-1.0); Blood Urea Nitrogen 49 mg/dL (8-24); CO2, Blood 34 mmol/L (21-32); Calcium, Blood 9.1 mg/dL (8.5-10.1); Chloride, Blood 103 mmol/L (98-108); Creatinine, Blood 1.14 mg/dL (0.60-1.20); Globulin, Blood 4.5 g/dL (2.2-4.0); Glomerular Filtration Rate 73 (60-); Glucose, Blood 101 mg/dL (70-99); Potassium, Blood 4.3 mmol/L (3.5-5.5); Sodium, Blood 136 mmol/L (136-145); Total Protein, Blood 7.2 g/dL (6.4-8.2)
--- NOTE | 2023-07-18 05:44 | NUR ---
SHIFT SUMMERY PT IS ALERT AND ORIENTED X 4, DE W/GENERALIZED WEAKNESS. ABLE TO MAKE NEEDS KNOWN AND COMPLIANT W/CARE. CONTINENT OF BOWEL AND BLADDER. PT WORE HIS BIPAP OVERNIGHT W/OUT DIFFICULTY. OXYGEN SAT HAVE REMAINED >90% ON BIPAP AND NC. PT HAS HAD NO ACUTE CHANGES OVERNIGHT. VSS, AFEBRILE. PT IS ON BARIATRIC BED.
[2023-07-18 08:46] VITALS: BP 119/79
--- NOTE | 2023-07-18 09:10 | NUR ---
AM NOTE... ASSUMED CARE OF PT AT 0700. PT IS A&Ox4. HE IS ON 5L NC WITH O2 SATS>90% L/S CLEAR T/O THE UPPER LOBES DIM T/O THE MID/LOWER LOBES. HE IS IN AFIB IN THE 80'S-90'S BP IS STABLE WITH MAPS>65. PLANS TO WORK WITH PT/OT TODAY AND GET UP IN THE RECLINER CHAIR. CALL LIGHT IN REACH WILL CONTINUE TO MONITOR.
[2023-07-18 11:03] VITALS: BP 114/73
--- NOTE | 2023-07-18 15:58 | NUR ---
"Spiritual Care Referral | Referred by Dr. Krystal GARSIA Pt. is resting but responds when I enter the room. Pt. is pleasant. Facilitated a life review and through theraputic listening and able to establish some rapport with Pt. Pt. displays evidence of being guarded and seems cloak the emotional pain noted in the referral, Pt. displays evidence of not wanting to share freely. Pt. was agreeable to prayer. Prayed for Pt. and helped Pt. bring his bed table to bedside. Pt. verbalized gratitude for the spiritual care visit and welcomed this hotel superintendent to return"
[2023-07-18 17:00] VITALS: BP 119/76
--- NOTE | 2023-07-18 17:53 | NUR ---
SHIFT SUMMARY.... NO ACUTE NEGATIVE CHANGES NOTED THIS SHIFT. PT'S VS STABLE. HE HAS BEEN ON 5L NC WITH O2 SATS >90%, PT'S O2 SATS DROP WITH ACTIVITY SUCH TALKING AND EATING BUT HE QUICKLY RECOVERS. PT WILL BE GETTING A SPECIAL ORDER RECLINER CHAIR TOMORROW TO WORK WITH PT/OT AND BE ABLE TO GET OUT OF BED. THE DRESSING TO THE PT'S RIGHT FLANK BLISTERS WAS CHANGED BY THIS RN. THE PT HAS BEEN CONT OF URINE AND STOOL THIS SHIFT USING THE BEDPAN AND THE URINAL NEEDED. CALL LIGHT IN REACH WILL CONTINUE TO MONITOR UNTIL REPORT IS GIVEN TO ONCOMING RN.
[2023-07-18 20:01] VITALS: BP 111/99
[2023-07-19] VITALS (7 sets, daily range): BP systolic 108–121; BP diastolic 51–88
[2023-07-19 03:20] LABS: BASOPHILS ABSOLUTE AUTO 0.05 K/mm3 (0.00-0.23); BASOPHILS PERCENT AUTO 1 % (0-2); EOSINOPHILS ABSOLUTE AUTO 0.33 K/mm3 (0.00-0.68); EOSINOPHILS PERCENT AUTO 3 % (0-6); Hematocrit 45.5 % (37.0-53.0); Hemoglobin 13.8 g/dL (13.5-17.5); IMMATURE GRAN ABSOLUTE AUTO 0.05 K/mm3 (0.00-0.10); IMMATURE GRAN PERCENT AUTO 1 % (0-1); LYMPHOCYTES ABSOLUTE AUTO 1.62 K/mm3 (0.84-5.20); LYMPHOCYTES PERCENT AUTO 16 % (21-46); MONOCYTES ABSOLUTE AUTO 2.51 K/mm3 (0.16-1.47); MONOCYTES PERCENT AUTO 24 % (4-13); Mean Corpuscular HGB 30.2 pg (26.0-34.0); Mean Corpuscular HGB Conc 30.3 g/dL (31.5-36.5); Mean Corpuscular Volume 100 fL (80-100); Mean Platelet Volume 10.4 fL (9.1-12.4); NEUTROPHILS ABSOLUTE AUTO 5.88 K/mm3 (1.96-9.15); NEUTROPHILS PERCENT AUTO 56 % (41-73); Platelet Count 196 K/mm3 (150-400); RDW Coefficient Variation 15.6 % (11.7-14.2); RDW Standard Deviation 57.4 fL (35.1-46.3); Red Blood Cell Count 4.57 M/mm3 (4.30-5.90); White Blood Cell Count 10.44 K/mm3 (4.00-11.30)
[2023-07-19 03:41] LABS: Bun/Creatinine Ratio 39.1 (12.0-20.0); Creatinine, Blood 1.15 mg/dL (0.60-1.20); Potassium, Blood 4.3 mmol/L (3.5-5.5)
--- NOTE | 2023-07-19 05:57 | NUR ---
SHIFT SUMMERY PT IS ALERT AND ORIENTED X4. HE HAS BEEN COMPLIANT W/WEARING HIS BIPAP OVERNIGHT AND TOLERATED W/OUT DIFFICULTY. OXYGEN SAT 100% AT THIS TIME. PT HAS HAD NO PAIN OR DISCOMFORT. HE IS CONTINENT OF URINE BUT REQUIRES ASSISTANCE W/URINAL DUE TO BODY HABITUS. PT HAS BEEN AFIB ON THE WEARING APPAREL PRESSER. BP WNL, AFEBRILE. DE W/GENERALIZED WEAKNESS.
[2023-07-19] MEDS ORDERED: Acetaminophen 325 MG TABLET PO PRN (07:35)
--- NOTE | 2023-07-19 07:38 | NUR ---
AM NOTE... ASSUMED CARE OF PT AT 0700. PT IS A&Ox4. PT WAS ON THE BIPAP ALL NIGHT AT 16/10 AND 35% THIS WAS TITRATED DOWN TO 30% BY RT AT THE TIME OF THIS ASSESSMENT. L/S WERE DIM T/O WITH EXP WHEEZES IN THE UPPER LOBES. THE PT WAS SWITCHED OFF OF THE BIPAP TO NC AT 5L WHICH WAS TITRATED DOWN TO 3L WITH O2 SATS>92% AT THE TIME OF THIS ASSESSMENT. HE IS IN AFIB IN THE 80'S-90'S. BP IS STABLE WITH MAPS>70. BT PRESENT AND HYPOACTIVE, ABD IS LARGE AND NONTENDER TO PALPATION. PT IS ANXIOUS TO GET UP OUT OF BED, WAITING ON A BARIATRIC RECLINER TO BE DELIVERED IN ORDER TO GET THE PT UP OUT OF BED. CALL LIGHT IN REACH WILL CONTINUE TO MONITOR.
[2023-07-19] MEDS ORDERED: HYDROcodone 10-APAP 325 TAB PO PRN (09:15)
[2023-07-19] MEDS ORDERED: Fluticasone 0.05% Nasal Spray SCH (11:45)
--- NOTE | 2023-07-19 17:05 | NUR ---
SHIFT SUMMARY... NO ACUTE NEGATIVE CHANGES NOTED THIS SHIFT. PT IS PLEASENT AND COOPERATIVE WITH CARE. HE WAS TITRATED DOWN TO 2L NC WITH O2 SATS>90%. PT WAS WILLING TO WEAR THE BIPAP WHILE TAKING A NAP THIS AFTERNOON. THE PT WAS UP IN THE RECLINER CHAIR FOR APROX 2 HRS THIS SHIFT AND AGAIN UP IN THE CHAIR FOR DINNER. THE PT HAS BEEN CONT OF URINE AND STOOL THIS SHIFT USING THE URINAL AND BED LAWSON NEEDED. GAME DESIGNER/CREATIVE DIRECTOR WAS AT THE BEDSIDE TO ASSESS THE BLISTER WOUNDS ON THE PT'S RIGHT FLANK, PER THE GAME DESIGNER/CREATIVE DIRECTOR DRESSING CHANGES DAILY AND PRN TO KEEP THE BLISTERS/WOUND BEDS MOIST USING XEROFORM/VASELINE DRESSING COVERED WITH ABD PADS. CALL LIGHT IN REACH WILL CONTINUE TO MONITOR UNTIL REPORT IS GIVEN TO ONCOMING RN.
[2023-07-20 01:28] VITALS: BP 133/108
--- NOTE | 2023-07-20 05:19 | NUR ---
SHIFT SUMMERY PT HAS HAD NO ACUTE CHANGES OVERNIGHT. HE HAS BEEN COMPLIANT W/WEARING BIPAP WHILE SLEEPING AND HAS TOLERATED W/OUT DIFFICULTY. OXYGEN SAT 100% AT THIS TIME. PT WOUND DRESSINGS ARE DRY AND INTACT. HE CONTINUES TO BE IN AFIB W/RATE CONTROLLED ON THE SHOVEL OPERATOR. BP WNL, AFEBRILE. PT IS ALERT AND ORIENTED X4, ABLE TO MAKE NEEDS KNOWN.
[2023-07-20 06:29] VITALS: BP 114/66
--- NOTE | 2023-07-20 07:00 | NUR ---
ASSUMED CARE I ASSUMED CARE OF THIS PATIENT FROM TANA VILLAVICENCIO. PATIENT IS LAYING IN BED SLEEPING. NO GTTS INF AT THIS TIME. 20G PIV TO RT FA SALINE LOCKED. NO FAMILY OR VISITORS AT BEDSIDE. BIPAP IN PLACE 16/10 30% FIO2. SOP2 GREATER THAN 90%. VSS. MONITOR SHOWS AFIB RHYTHM.
[2023-07-20 08:00] VITALS: BP 107/95
[2023-07-20 08:33] VITALS: BP 104/80
[2023-07-20] MEDS ORDERED: Furosemide 40 MG Tab PO SCH (17:00)
[2023-07-20 17:36] VITALS: BP 104/77
--- NOTE | 2023-07-20 18:12 | NUR ---
SHIFT SUMMARY PATIENT WAS UP TO THE CHAIR FOR APPROXIMATELY 2 HOURS TODAY VIA LIFT. UNABLE TO WORK WITH PT/OT DUE TO CHAIR PREVENTING OPTIMAL AND SAFE POSITIONING OF PATIENT TO STAND. PLAN TO BRING A MORE APPROPRIATE CHAIR TO THE ROOM TOMORROW AND TRY AGAIN. PENDING ACCEPTANCE TO [facility] BASED ON PT/OT EVAL. PATIENT O2 @ 3LPM VIA NC. SPO2 MID 90'S. STATUS CHANGED TO MED WITHOUT TELE THIS SHIFT. PATIENT IS ABLE TO SHIFT SLEF IN BED AND ASSIST WITH TURNS. DRESSING TO WOUND ON RT FLANK CHANGED THIS SHIFT WITH NEW WOUND CARE ORDERS FOR DAILY WOUND CLEANSING AND DRESSING CHANGES. PATIENT HAD BM THIS SHIFT AND GOOD URINE OUTPUT. LASIX PO STARTED FOR FLUID RETENTION. NO OTHER CHANGES THIS SHIFT.
[2023-07-20 19:58] VITALS: BP 112/87
--- NOTE | 2023-07-20 20:00 | NUR ---
ASSUMED CARE OF PT AT 1900. REPORT RECEIVED. PT PRESENTS IN BED. ALERT AND ORIENTED. PLEASANT AND COOPERATIVE WITH CARE AND ASSESSMENT. PT WEARING O2 PER NASAL CANNULA AT 5 L/M. PT MAINTAINS SATURATIONS > 90 PERCENT WITH THIS. PT HAS VISITOR IN ROOM. PT DOES FALL ASLEEP WHILE VISITING. DENIES COMPLAINTS AT THIS TIME. SPEAKS ABOUT BEING UP IN CHAIR THIS DAY, AND WORKING WITH PHYSICAL THERAPY. WILL REVIEW CHART AND PLAN OF CARE FOR THIS PT.
[2023-07-21] VITALS (8 sets, daily range): BP systolic 98–122; BP diastolic 67–96
[2023-07-21 03:17] LABS: BASOPHILS ABSOLUTE AUTO 0.04 K/mm3 (0.00-0.23); BASOPHILS PERCENT AUTO 0 % (0-2); EOSINOPHILS ABSOLUTE AUTO 0.28 K/mm3 (0.00-0.68); EOSINOPHILS PERCENT AUTO 3 % (0-6); Hematocrit 45.5 % (37.0-53.0); IMMATURE GRAN ABSOLUTE AUTO 0.05 K/mm3 (0.00-0.10); IMMATURE GRAN PERCENT AUTO 1 % (0-1); LYMPHOCYTES ABSOLUTE AUTO 1.15 K/mm3 (0.84-5.20); LYMPHOCYTES PERCENT AUTO 12 % (21-46); MONOCYTES ABSOLUTE AUTO 1.29 K/mm3 (0.16-1.47); MONOCYTES PERCENT AUTO 14 % (4-13); Mean Corpuscular HGB 29.9 pg (26.0-34.0); Mean Corpuscular HGB Conc 30.8 g/dL (31.5-36.5); Mean Corpuscular Volume 97 fL (80-100); NEUTROPHILS ABSOLUTE AUTO 6.45 K/mm3 (1.96-9.15); NEUTROPHILS PERCENT AUTO 70 % (41-73); Platelet Count 196 K/mm3 (150-400); RDW Coefficient Variation 15.5 % (11.7-14.2); RDW Standard Deviation 55.2 fL (35.1-46.3); Red Blood Cell Count 4.69 M/mm3 (4.30-5.90); White Blood Cell Count 9.26 K/mm3 (4.00-11.30)
[2023-07-21 03:59] LABS: Albumin, Blood 2.6 g/dL (3.4-5.0); Albumin/Globulin Ratio 0.6 (0.8-1.8); Bun/Creatinine Ratio 40.2 (12.0-20.0); Calcium, Blood 9.1 mg/dL (8.5-10.1); Creatinine, Blood 0.95 mg/dL (0.60-1.20); Globulin, Blood 4.1 g/dL (2.2-4.0); Magnesium, Blood 2.2 mg/dL (1.6-2.4); Potassium, Blood 4.9 mmol/L (3.5-5.5); Total Protein, Blood 6.7 g/dL (6.4-8.2)
--- NOTE | 2023-07-21 06:46 | NUR ---
PT HAS BEEN ABLE TO REST THRU THE NIGHT. COMPLIANT WITH WEARING BIPAP MASK. DRESSING TO RIGHT TORSO INTACT. SEROUS DRAINAGE. PT DOES STATE THAT HIS SIDE ITCHES. TEACHING DONE TO NOT SCRATCH AT AREA IN PREVENTION OF INFECTION. WILL CONTINUE TO MONITOR PT, AND WILL REPORT OFF TO ONCOMING RN.
--- NOTE | 2023-07-21 07:00 | NUR ---
ASSUMPTION OF CARE: ASSUMED CARE OF PATIENT. PATIENT RESTING IN THE BED ON HIS LEFT SIDE. PATIENT DENIES PAIN OR DISCOMFORT AT THIS TIME. PER NOC RN, PATIENT HAS BEEN ON NC FOR ABOUT 45 MINUTES. PATIENT BREATHING IS EVEN AND REGULAR. NO SIGNS OF DISTRESS OR DIFFICULTY BREATHING. PATIENT WAS INITIALLY ON 5L UPON ENTERING ROOM FOR REPORT. SATURATIONS AT 100%. TURNED PATIENT DOWN TO 3L. SPO2 >95%. PATIENT CONTINUES TO BREATH WITHOUT DIFFICULTY. HR IN THE 80S. BPS STABLE WITH MAPS >65. PROVIDED PATIENT WITH ICE WATER. PATIENT DENIES OTHER NEEDS AT THIS TIME.
[2023-07-21] MEDS ORDERED: Empagliflozin 10 MG TAB PO SCH (09:00)
[2023-07-21] MEDS ORDERED: DiphenhydrAMINE HCL 25 MG Cap PO PRN (13:00)
--- NOTE | 2023-07-21 18:32 | NUR ---
SHIFT SUMMARY: PATIENT CONTINUES TO HAVE SIGNIFICANT PAIN IN THE BILATERAL LOWER EXTREMITIES. PAIN CONTROLLED WITH PRN PAIN MEDICATIONS. PATIENT ABLE TO PARTICIPATE WITH THERAPY AND GET UP TO THE CHAIR/BSC USING HEEL BEARING WEIGHT ONLY ON THE LEFT FOOT. PATIENT VISITED BY DR. SUAZO, ORTHOPEDIC SURGEON (SEE NURSE'S NOTE). PATIENT VISITED BY SHEARER OPERATOR DONOVAN TODAY. PATIENT'S WOUND WILL BLEED OR SEEP SERO-SANGINOUS FLUID WITH STAND PIVOT OUT OF BED. PATIENT'S HEART RATE IN THE 50S-60S. PATIENT DENIED LIGHTHEADEDNESS OR DIZZINESS. PATIENT SHORT OF BREATH WITH ACTIVITY. PATIENT'S REPORTED THAT THIS IS HOW HE IS AT HOME. PATIENT RECEIVED HYDRALAZINE PRN ONCE PER PARAMETERS. PATIENT RESPONDED WELL AND SBP <170 FOR THE REST OF THE SHIFT. PATIENT PASSED BARIUM SWALLOW EVALUATION. PATIENT TEMPTED TO DRINK FLUIDS FROM THE GLASS. PATIENT'S IS VERY STRICT WITH THE PATIENT AND WATCHES HIM TO ENSURE HE IS FOLLOWING THE SWALLOW PRECAUTIONS. PATIENT TOLERATED THIN LIQUIDS VIA TEASPOON AND HIS NEW DIET TEXTURE. PATIENT REPORTS FEELING SOME CONSTIPATION. PROVIDED WITH PRUNE JUICE. PATIENT DECLINED SUPPOSITORY AT THIS TIME. PATIENT ABLE TO HAVE A SMALL, HARD STOOL THIS EVENING. EXCORIATION NOTED ON SHAFT OF PENIS - CONDOM CATH KEPT OFF. PATIENT ABLE TO USE THE URINAL. URINE IS A DARK JG.
--- NOTE | 2023-07-21 18:56 | NUR ---
SHIFT SUMMARY: PATIENT DENIED PAIN THROUGHOUT THE SHIFT. PATIENT ABLE TO HELP WITH REPOSITIONING. PATIENT ABLE TO STAND WITH PT/OT TODAY. PATIENT UP TO THE CHAIR FOR A COUPLE OF HOURS THIS AFTERNOON. PATIENT EXPRESSED MOTIVATION FOR IMPROVING HIS LIFESTYLE. HE IS APPRECIATIVE OF THE CARE AND LOOKING FORWARD TO GOING TO [facility]. Functional NeuromodulationA PASSENGER CAR UPHOLSTERER APPRENTICE, SANIYA, ASSESSED THE PATIENT THIS AFTERNOON. SHE REPORTED THAT SHE WOULD KNOW IF HE WAS ABLE TO DISCHARGE TOMORROW BY THIS EVENING. AT THE TIME OF THIS NOTE, NO WORD HAS BEEN RECEIVED FROM [facility]. CLARIFIED WITH RT THAT THE PATIENT DOES REQUIRE BIPAP AT NIGHT AND NOT CPAP. PATIENT CONTINUES TO BE IN AFIB WITH HR IN THE 80S-90S. BLOOD PRESSURES STABLE WITH MAPS >65. WHEN AWAKE, PATIENT TOLERATES BEING ON 3L VIA NC; SPO2 >94%. PATIENT DENIES SHORTNESS OF BREATH OR DIFFICULTY BREATHING. PATIENT TOLERATES THE BIPAP FOR SLEEP. PATIENT CONTINENT OF BLADDER AND BOWEL. PATIENT ABLE TO MAKE HIS NEEDS KNOWN. PATIENTS DRESSING ON HIS RIGHT ABDOMEN CHANGED TODAY. PATIENT HAS MULTIPLE OPEN BLISTERS THAT OOZE MODERATE AMOUNTS OF SEROUS FLUID. PATIENT VISITED BY HIS DAUGHTER AND A GOOD FRIEND TODAY. THEY ARE SUPPORTIVE OF THE PATIENT AND ENCOURAGING TO HIM.
--- NOTE | 2023-07-21 21:12 | NUR ---
ASSUMED CARE PT IS A&O X4; SPO2 92% ON BIPAP. RATE IN THE 80'S. MAP >65. PT DENIES CP, SOB, OR NAUSEA. STATES HE "FEELS PRETTY GOOD".
[2023-07-22 04:00] VITALS: BP 85/63
--- NOTE | 2023-07-22 05:33 | NUR ---
SHIFT SUMMARY PT RESTED QUIETLY T/O NIGHT. NO ACUTE EVENTS. CONTINUES TO DENY CP, SOB, AND NAUSEA. VSS. PT'S ONLY "COMPLAINT" WAS AN ITCHY BACK. DRESSING STILL INTACT. WORE BIPAP FOR WHOLE NIGHT W/ INTERMITTENT BREAKS FOR WATER.
[2023-07-22 06:55] VITALS: BP 110/69
--- NOTE | 2023-07-22 07:00 | NUR ---
ASSUMPTION OF CARE: ASSUMED CARE OF PATIENT. PATIENT CURRENTLY RESTING WITH BIPAP ON. SPO2 98-100%. HR IN THE 80S. MAPS >65. PATIENT DENIES NEEDS AT THIS TIME.
[2023-07-22] MEDS ORDERED: Lisinopril 5 MG Tab PO SCH ×2 (09:00→13:00)
[2023-07-22 10:00] VITALS: BP 106/69
[2023-07-22 12:20] VITALS: BP 108/91
[2023-07-22 15:36] LABS: PCO2 Arterial 68.1 mmHg (35-45); PO2 Arterial 79.1 mmHg (80-100); pH Blood Arterial 7.33 (7.35-7.45)
[2023-07-22 16:00] VITALS: BP 107/76
--- NOTE | 2023-07-22 18:30 | NUR ---
TRANSFER FROM ICU PATIENT TRANSFERED FROM ICU AT 1730. PATIENT ALERT AND INTERACTIVE. PATIENT EDUCATED LIME FILTER OPERATOR SYSTEM. PATIENT NOTED TO HAVE EDEMA UP TO ABDOMINAL AREA. BLISTERED AREA ON ABD AND BACK COVERED WITH DRESSING. PATIENT STATES AREA PAINFUL AND ITCHY. REPORTED THAT LESIONS WERE CULTURED AND SUSPECTED TO BE SHINGLES. PATIENT CURRENTLY IN AIRBORNE ISOLATION.
--- NOTE | 2023-07-22 18:50 | NUR ---
TRANSFER TO MEDICAL FLOOR: LATE ENTRY: THIS EVENING, PATIENT TRANSFERED TO MEDICAL UNIT. DURING THE DAY THE PATIENT DENIED PAIN OR DISCOMFORT. PATIENT INCREASED IN HIS MOBILITY AND WAS ABLE TO ASSIST MORE WITH REPOSITIONING. PATIENT STABLE ON 3L VIA NC OR BIPAP WITH SLEEP. SPO2 >94%. PATIENT DENIED DIFFICULTY BREATHING OR SHORTNESS OF BREATH AT REST. SOME SHORTNESS OF BREATH WITH ACTIVITY. PATIENT HR IN THE 80S. PATIENT TOLERATING PO CARDIAC MEDICATIONS. MAPS >65. PATIENT UP TO THE CHAIR USING THE LIFT. PATIENT WORKED WITH PT/OT TODAY. PATIENT CONTINUES TO BE MOTIVATED TO MAKE CHANGES TO HIS LIFESTYLE. PATIENT VISITED BY FRIENDS AND FAMILY TODAY. THEY ARE SUPPORTIVE AND ENCOURAGING TO THE PATIENT. SWAB SENT OUT TODAY TO TEST BLISTERS FOR SHINGLES. ISOLATION PRECAUTIONS IN PLACE. PATIENT TRANSFERRED TO MEDICAL UNIT VIA BED. ALL BELONGINGS TRANSFERRED WITH THE PATIENT. PATIENT STABLE AT TIME OF TRANSFER. NOTIFIED RT OF TRANSFER FOR BIPAP INSPECTOR RECEIVING.
[2023-07-22 19:43] VITALS: BP 100/68
[2023-07-22] MEDS ORDERED: Metoprolol Succinate 25 MG TABCR PO SCH (21:00)
[2023-07-23 02:54] VITALS: BP 103/80
[2023-07-23 05:43] LABS: Base Excess Venous 11.8 mmol/L; Bicarbonate Venous 32.4 mmol/L (24.0-30.0); PCO2 Venous 65.6 mmHg (38-42); pH Blood Venous 7.36 (7.34-7.37)
--- NOTE | 2023-07-23 06:04 | NUR ---
PATIENT IS ALERT AND ORIENTED, WITH O2 AT 3 LPM/NASAL CANNULA. WITH PIV LINE AT RIGHT FA PATENT AND INTACT. NOTED SKIN BLISTER WITH DRESSING. RT VIANEY CAME IN LAST NIGHT TO PLACED CPAP ON AND CONTINUOUS BIOX. NO COMPLAINT MADE. PATIENT USES A URINAL. CALLS APPROPRIATELY. NEEDS ATTENDED. CALL LIGHT WITHIN PATIENT'S REACH. WILL CONTINUE TO MONITOR.
[2023-07-23 07:41] VITALS: BP 103/69
[2023-07-23] MEDS ORDERED: Acyclovir 400 MG Tab PO SCH (14:00)
[2023-07-23 15:05] VITALS: BP 83/57
--- NOTE | 2023-07-23 19:51 | NUR ---
SHIFT SUMMARY A&O X 4, VSS. IS PLEASANT & COOPERATIVE WITH ALL CARE. HAD BM ON BEDPAN TODAY. APPETITE GOOD. DRESSING CHANGE DONE ON R SIDE PER MD ORDERS. ON 3 L'S O2 DURING DAY, CPAP WHEN SLEEPING DURING DAY & AT NOC. ON CONT BIOX. SATS >95%, CAN DESAT IF FALLS ASLEEP WITHOUT CPAP. WILL REGAIN SATS >95% WITH DEEP BREATHING. IS IN ISO FOR SHINGLES. MEDICATED FOR PAIN FOR DRESSING CHANGE WITH GOOD RELIEF STATED BY PT. PT IS ON BARIBED. PT IS ABLE TO REPOSITION SELF FOR COMFORT. PLAN IS FOR SNF/[facility] BED UPON DC.
[2023-07-23 20:23] VITALS: BP 88/55
[2023-07-24 02:38] VITALS: BP 76/60
--- NOTE | 2023-07-24 04:54 | NUR ---
PATIENT IS ALERT AND ORIENTED. ON O2 INHALATION AT 3 LPM/NASAL CANNULA. WITH PIV LINE AT RIGHT FA PATENT AND INTACT. VITAL SIGNS TAKEN AND RECORDED, OMITTED METOPROLOL LAST NIGHT. PLACED ON CPAP, WITH CONTINUOUS BIOX. DUE MEDS GIVEN AND TOLERATED. NEEDS ATTENDED. CALLS APPROPRIATELY. WILL CONTINUE TO MONITOR.
[2023-07-24] MEDS ORDERED: Lactated Ringer's 500 ML IV SCH (06:00)
[2023-07-24] MEDS ORDERED: Lactated Ringer's 1,000 ML IV SCH (06:00)
[2023-07-24 10:07] VITALS: BP 87/57
[2023-07-24 13:30] VITALS: BP 107/69
[2023-07-24 15:02] VITALS: BP 88/58
--- NOTE | 2023-07-24 18:39 | NUR ---
SHIFT SUMMARY IS A&O X 4. BP HAS BEEN LOW (SEE VITAL SIGNS), S/W DR. OTERO & MD LEWIS MD STATED OK TO HOLD LASIX, GIVE LISINOPRIL THEN TO WAIT TIL AFTERNOON TO GIVE LOPRESSOR. BP AT 1330 WAS 107/69, LOPRESSOR GIVEN. FLUIDS ENCOURAGED. URINE HAS BEEN DARK. BP AT AFTERNOON VITALS WAS 88/58. IS PLEASANT & COOPERATIVE WITH ALL CARE. IS ABLE TO MOVE & REPOSITION SELF IN BED FOR COMFORT. IS ON 3 L'S O2 VIA NC, ON CONT BIOX, SATS >95%. WILL DESAT INTO 80'S ON 3 L'S IF FALLS ASLEEP THEREFORE IS PLACED ON CPAP FOR NAPS/SLEEP. REQUIRES ASSISTANCE WITH URINAL. BM ON BEDPAN TODAY. DC PLAN IS SNF/[facility].
[2023-07-24 19:28] VITALS: BP 86/58
[2023-07-25 04:11] VITALS: BP 91/63
--- NOTE | 2023-07-25 06:12 | NUR ---
SHIFT SUMMARY: ROSALINDA IS A&OX4. VSS, NO ACUTE EVENTS THIS SHIFT. HE IS MAINTINING SATS >90% ON 3L VIA NC, BIPAP USED WHILE RESTING. IV TO R WRIST PATENT, PT IS TOLERATING PO INTAKE WELL, REQUIRES ASSISTANCE WITH THE URINAL, IS CONTINENT OF BLADDER AND BOWEL. HE IS ABLE TO TURN HIMSELF SIDE TO SIDE INDEPENDENTLY. DRESSING TO RIGHT SIDE C/D&I, CHANGED THIS SHIFT. PT IS PLEASANT AND COOPERATIVE. HE IS LYING IN BED WITH THE CALL LIGHT IN REACH. WILL GIVE REPORT TO DAY SHIFT RN.
[2023-07-25 07:27] VITALS: BP 91/57
[2023-07-25 11:02] LABS: VARICELLA-ZOSTER VIRUS BY PCR Not Detected; VARICELLA-ZOSTER VIRUS SOURCE BLISTER
[2023-07-25 12:47] VITALS: BP 92/59
[2023-07-25 15:27] VITALS: BP 97/54
--- NOTE | 2023-07-25 17:48 | NUR ---
PT IS AOX4 AND COOPERATIVE OF CARE. PT ABLE TO MAKE NEEDS KNOWN AND HELPS WITH CHANGES BY ROLLING AROUND IN BED. PT REPORTS NOT BEING ITCHY AND WAS TREATED PER EMAR X1. PT ALSO HAD HIS BANDAGE REPLACED OVER HIS SHINGLES BLISTERS. PT TOLERATED WELL. PT HAS BEEN USING HIS BIPAP TO SLEEP. NO DISTRESS NOTED WILL CONTINUE TO MONITOR.
[2023-07-25 19:35] VITALS: BP 86/60
[2023-07-26 03:51] VITALS: BP 107/71
[2023-07-26 06:16] LABS: Hematocrit 45.1 % (37.0-53.0); Hemoglobin 13.7 g/dL (13.5-17.5); Mean Corpuscular HGB 29.8 pg (26.0-34.0); Mean Corpuscular HGB Conc 30.4 g/dL (31.5-36.5); Mean Corpuscular Volume 98 fL (80-100); Platelet Count 200 K/mm3 (150-400); RDW Coefficient Variation 15.6 % (11.7-14.2); RDW Standard Deviation 56.3 fL (35.1-46.3); White Blood Cell Count 7.75 K/mm3 (4.00-11.30)
[2023-07-26 06:39] LABS: Albumin, Blood 2.6 g/dL (3.4-5.0); Anion Gap 0 mmol/L (6-16); Blood Urea Nitrogen 40 mg/dL (8-24); Bun/Creatinine Ratio 38.8 (12.0-20.0); CO2, Blood 36 mmol/L (21-32); Chloride, Blood 102 mmol/L (98-108); Creatinine, Blood 1.03 mg/dL (0.60-1.20); Glomerular Filtration Rate 83 (60-); Glucose, Blood 87 mg/dL (70-99); Magnesium, Blood 2.5 mg/dL (1.6-2.4); Phosphorus, Blood 3.4 mg/dL (2.5-4.9); Potassium, Blood 4.4 mmol/L (3.5-5.5); Sodium, Blood 138 mmol/L (136-145)
--- NOTE | 2023-07-26 07:33 | NUR ---
Shift Summary Pt AOx4, he is bedbound and is a lift patient. He c/o of itchyness, medicated per emar. He also c/o of a mild headache, given PRN Tylenol. He is able to call appropriatly and void into urinal with assitance. Folds cleaned and powder applied. He is on 3L bipap t/o the night, no desaturation events.
[2023-07-26] MEDS ORDERED: Loperamide HCl 2 MG Cap PO PRN (13:10)
--- NOTE | 2023-07-26 16:37 | NUR ---
PT AOX4 AND COOPERATIVE OF CARE. PT WAS REFUSING TO GET UP TO CHAIR TODAY STATING HE WAS ITCHY, BUT THEN HE ALSO MENTIONED HAVING LOOSE BMs. DR OTERO WAS NOTIFIED AND MEDS ADDED TO EMAR. PT IN USING BIPAP AT NIGHT AND FOR NAPS WITH 3L BLEED IN. TREATED ITCHY SKIN PER EMAR. DRESSING IS INTACT AT THIS TIME. CALL LIGHT IN REACH WILL CONTINUE TO MONITOR.
[2023-07-26 19:21] VITALS: BP 88/66
[2023-07-27 04:09] VITALS: BP 121/84
--- NOTE | 2023-07-27 07:19 | NUR ---
Shift Summary Pt completed a sleep study tonight, sleeping without any supplimental O2. He O2 saturation ranged between 80-90 during the study. Pt states he was told he qualifies for a trilogy machine per the results of the study. He is AOx4, continent, on 4L BiPap before and after the sleep study. Rcving antiviral for Shingles. No c/o of pain. Pt did state at the start of the sleep study he was feeling short of breath for a few hours.
[2023-07-27 10:59] VITALS: BP 102/77
[2023-07-27 16:21] VITALS: BP 113/80
--- NOTE | 2023-07-27 19:50 | NUR ---
SHIFT SUMMARY: PATIENT REPORTED HIGH LEVELS OF FATIGUE TODAY RELATED TO THE SLEEP STUDY LAST NIGHT. PATIENT TOOK MULTIPLE NAPS ON THE BIPAP TODAY. WHEN AWAKE, PATIENT STABLE ON 3.5 L O2 VIA NC. PATIENT REPORTED IMPROVED BREATHING THROUGHOUT THE SHIFT HE CAUGHT UP ON SLEEP. PATIENT DENIED DESIRE FOR BENADRYL. PATIENT WOULD LIKE TO DECREASE THE NUMBER OF MEDICATIONS HE IS TAKING. PATIENT WORKED WITH PT/OT WHEN UP IN THE CHAIR TODAY. PATIENT CONTINUES TO HAVE HIGH LEVELS OF MOTIVATION TO IMPROVE. PATIENT REPORTED THAT HE WAS TOO FATIGUED TO EAT TODAY, BUT WAS ABLE TO HAVE AN ENSURE AT MEAL TIMES. PATIENT VISITED BY HIS FRIEND GARCIA TORRE. HE IS SUPPORTIVE AND ENCOURAGING TO THE PATIENT. VERFIED WITH INFECTION CONTROL THAT PATIENT DOES NEED TO CONTINUE TO BE IN AIRBORNE ISOLATION.
[2023-07-27 20:18] VITALS: BP 96/66
[2023-07-28 04:22] VITALS: BP 95/49
--- NOTE | 2023-07-28 06:22 | NUR ---
SHIFT SUMMARY NO ACUTE CHANGES THIS SHIFT, VSS. O2 VIA NC/BIPAP, CONT BIOX IN PLACE, PT WAS GIVEN IMMODIUM PER REQUEST DUE TO LOOSE BM'S, CALLS FOR ASSISTANCE W/URINAL, TYLENOL OR PAIN, RESTING QUIETLY AT THIS TIME, BIPAP ON, RESP UNLABORED, CALL LIGHT IN REACH
[2023-07-28 08:24] VITALS: BP 99/67
--- NOTE | 2023-07-28 09:26 | NUR ---
AIRBORNE ISOLATION- RN SPOKE WITH UX CONSULTANT ON 07/28/23 AT 09:25. RN ASKED WHY HE IS IN ISOLATIN WITH A NEGATIVE VARICELLA-ZOSTER RESULT. UX CONSULTANT STATED THAT SHE SPOKE WITH FRINGE MAKER ABOUT THIS WO STATED THAT THE LAB RESULT IS NON-DEFINITIVE AND THAT WITH THE PATIENT'S BLISTERS WE SHOULD ERR ON THE SIDE OF CAUTION AND KEEP THE PATIENT IN AIRBORNE ISOLATION.
[2023-07-28 09:42] VITALS: BP 111/70
--- NOTE | 2023-07-28 10:31 | NUR ---
Spiritual Care Visit. Pt. is awake in bed when he welcomes my visit. Pt. has friends at bedside. Facilitate life update. Pt. displays evidence of awareness and engagement. Pt. and friends verbalize an expectation that pt. might be transerred to a [facility] if beds open up. Listen with interest, empathy and a calming presence. Pt. verbalized gratitude for the spiritual care visit. Will remain available to the Pt.
[2023-07-28] MEDS ORDERED: Acyclovir 400 MG Tab PO SCH (14:00)
--- NOTE | 2023-07-28 17:47 | NUR ---
PATIENT IS ALERT AND ORIENTED AND COOPERATIVE WITH CARE. PATIENT WORKED WITH OT IN THE BED THIS MORNING, HE DID NOT WORK WITH PT THIS AFTERNOON. PATIENT HAD 1 LOOSE BM THIS SHIFT. IMMODIUM GIVEN PER EMAR. BIPAP WITH 3.5L BLEED IN. PATIENT WAS ABLE TO BE ON RA THROUGHOUT THE SHIFT WHILE AWAKE WITH O2 SATURATIONS ABOVE 93% BUT AT TIMES WHILE EATING OR TALKING HE DOES DESATURATE. SUPPLEMENTAL OXYGEN AT THE BEDSIDE AND ON THE PATIENT A THIS TIME WHILE HE EATS DINNER.
[2023-07-28 19:55] VITALS: BP 107/71
[2023-07-29 03:26] VITALS: BP 98/72
--- NOTE | 2023-07-29 03:59 | NUR ---
SHIFT SUMMARY VSS, SOFT BPS NOTED. PT REMAINS ON BIPAP W/ 4L BLEED IN. SATS NOTED TO DROP TO 85% WHEN PT TAKES MASK OFF. >92% WITH BIPAP IN PLACE. PT REPORTS HIS BREATHING FEELS SIGNIFIGANT BETTER TONIGHT COMPARED TO PREVIOUS NIGHT. STATES HES HAD MINIMAL TO NO SOB OR PALIPATIONS. PT REMAINS PLEASENT T/O THE NIGHT. REMAINS IN BED. ASSISTED W/ URINAL, NO BMS NOTED. LOW URINE OUTPUT NOTED DESPITE GOOD ORAL INTAKE. EDEMA NOTED IN BLE. RASH ON R FLANK NOTED TO BE SCABBING OVER, SOME SMALL BLISTERS NOTED. OPEN AREAS NOTED, BEGINNING TO DRY OUT. PT WANTED TO LET AIR GET TO THIS AREA, DRESSING REMOVED DURING ASSESSMENT. PLAN TO REDRESS THIS AM. OVERALL NO ACUTE EVENTS NOTED. AWAITING SNF PLACEMENT
[2023-07-29 08:19] VITALS: BP 98/76
--- NOTE | 2023-07-29 10:51 | NUR ---
VITALS ABNORMAL THIS MORNING AND PT REPORTS FEELING WORSE TODAY. DR. CARDONA NOTIFIED. PT HAVING EPISODES OF DIARRHEA, TREATED PER EMAR.
[2023-07-29 11:20] LABS: BASOPHILS ABSOLUTE AUTO 0.04 K/mm3 (0.00-0.23); BASOPHILS PERCENT AUTO 1 % (0-2); EOSINOPHILS ABSOLUTE AUTO 0.24 K/mm3 (0.00-0.68); EOSINOPHILS PERCENT AUTO 3 % (0-6); Hematocrit 42.5 % (37.0-53.0); Hemoglobin 13.2 g/dL (13.5-17.5); IMMATURE GRAN ABSOLUTE AUTO 0.03 K/mm3 (0.00-0.10); IMMATURE GRAN PERCENT AUTO 0 % (0-1); LYMPHOCYTES ABSOLUTE AUTO 1.21 K/mm3 (0.84-5.20); LYMPHOCYTES PERCENT AUTO 15 % (21-46); MONOCYTES ABSOLUTE AUTO 0.87 K/mm3 (0.16-1.47); MONOCYTES PERCENT AUTO 11 % (4-13); Mean Corpuscular HGB 29.8 pg (26.0-34.0); Mean Corpuscular HGB Conc 31.1 g/dL (31.5-36.5); Mean Corpuscular Volume 96 fL (80-100); Mean Platelet Volume 10.8 fL (9.1-12.4); NEUTROPHILS ABSOLUTE AUTO 5.76 K/mm3 (1.96-9.15); NEUTROPHILS PERCENT AUTO 71 % (41-73); Platelet Count 203 K/mm3 (150-400); RDW Coefficient Variation 15.9 % (11.7-14.2); RDW Standard Deviation 55.5 fL (35.1-46.3); Red Blood Cell Count 4.43 M/mm3 (4.30-5.90); White Blood Cell Count 8.15 K/mm3 (4.00-11.30)
[2023-07-29 12:14] LABS: Blood Urea Nitrogen 26 mg/dL (8-24); CO2, Blood 38 mmol/L (21-32); Calcium, Blood 8.9 mg/dL (8.5-10.1); Chloride, Blood 103 mmol/L (98-108); Creatinine, Blood 1.04 mg/dL (0.60-1.20); Glomerular Filtration Rate 82 (60-); Glucose, Blood 111 mg/dL (70-99); Potassium, Blood 5.2 mmol/L (3.5-5.5); Sodium, Blood 139 mmol/L (136-145)
[2023-07-29 12:15] LABS: Anion Gap Unable to Calculate mmol/L (6-16)
[2023-07-29 16:23] VITALS: BP 100/74
--- NOTE | 2023-07-29 16:43 | NUR ---
PT IS ALERT AND ORIENTED X4. ABLE TO MAKE NEEDS KNOWN. BIPAP WORN FOR MOST OF THE SHIFT. PT REFUSED TO WORK WITH PT AND REFUSED TO GET IN CHAIR TODAY. EDUCATION PROVIDED ON IMPORTANCE OF PT FOR STRENGTH. DECLINED BREAKFAST AND LUNCH TODAY DUE TO UPSET STOMACH AND DIARRHEA. TREATED PER EMAR. BLISTERS ARE SCABBED OVER WITH NO DRAINAGE. SOME ITCHING. TREATED PER EMAR. 4L NC OR BIPAP 4L BLEED IN, IN USE. CURRENTLY PT HAS 4L NC ON.
[2023-07-29 20:51] VITALS: BP 101/68
[2023-07-29] MEDS ORDERED: Metoprolol Succinate 25 MG TABCR PO SCH (21:00)
[2023-07-30 03:13] VITALS: BP 104/66
--- NOTE | 2023-07-30 04:46 | NUR ---
PATIENT IS ALERT AND ORIENTED X4 ON CONTINUOUS BIOX, ON BIPAP PLACED. WITH PIV LINE ON LEFT ARM PATENT AND INTACT. NO COMPLAINT OF PAIN. MEDICATED ACCORDINGLY. CALLS APPROPRIATELY. NEEDS ATTENDED. FOR SNF PLACEMENT. ON ISOLATION D/T SHINGLES. CALL LIGHT WITHIN PATIENT'S REACH. WILL CONTINUE TO MONITOR.
[2023-07-30] MEDS ORDERED: Lisinopril 5 MG Tab PO SCH (09:00)
[2023-07-30] MEDS ORDERED: Furosemide 40 MG Tab PO SCH (09:00)
--- NOTE | 2023-07-30 10:09 | NUR ---
pt laying in bed on his side, a/ox4, pleasant and cooperative with care, follow commands well, denies pain at this time, states he's doing ok, Dr. Godinez in to see him this am, lungs are clear in upper castro, dim in bases, resp even and unlabored, no cough noted at this time, he denies a productive cough, on 4 liters currently, using bipap when sleeping, hrr, 3+ edema noted to b/l le, but could just be body habitus, cap refill <3 sec, vs stable, afebrile, piv to rfa site is clear and patent, btx4, abd flat soft nontender, voids without diff, skin has red rash to right side, looks like drying, maew, lift to get oob, bradley, call light in reach.
[2023-07-30] MEDS ORDERED: Saline Nasal Spray 45 ML PRN (11:40)
[2023-07-30 17:59] VITALS: BP 101/57
--- NOTE | 2023-07-30 18:17 | NUR ---
pt has had an uneventful day, did get up to chair for a bit today, he states he needs a back surgery and its very hard for him to sit up, has been reluctant to take norco today, states he just wants to stick with tylenol, but isn't tolerating sitting up due to pain, encouraged him to take a norco tomorrow about an hr prior to getting oob, may tolerate it better. he was agreeable, no further changes this shift. call light in reach.
[2023-07-30 19:29] VITALS: BP 98/67
--- NOTE | 2023-07-31 06:05 | NUR ---
SHIFT SUMMARY: PT IS ADMITTED FOR ACUTE RESPIRATORY FAILURE WITH HYPOXIA AND IS A FULL CODE. IS ALERT AND ABLE TO MAKE NEEDS KNOWN. ADLs HAVE BEEN 1P THROUGHOUT SHIFT. IS ON AIRBORNE ISO FOR SHINGLES. DENIES PAIN OR DISCOMFORT WHEN ASKED.
[2023-07-31 07:38] VITALS: BP 112/77
[2023-07-31] MEDS ORDERED: Midodrine 2.5 MG Tab PO SCH (13:00)
[2023-07-31 16:22] VITALS: BP 97/79
[2023-07-31 17:29] LABS: Base Excess Venous 14.6 mmol/L; Bicarbonate Venous 32.1 mmol/L (24.0-30.0); PCO2 Venous 76.8 mmHg (38-42); pH Blood Venous 7.33 (7.34-7.37)
[2023-07-31 19:56] VITALS: BP 89/66
[2023-08-01] VITALS (21 sets, daily range): BP systolic 78–137; BP diastolic 38–86
[2023-08-01 08:36] LABS: Base Excess Venous 10.4 mmol/L; Bicarbonate Venous 33.1 mmol/L (24.0-30.0); PCO2 Venous 43.8 mmHg (38-42)
--- NOTE | 2023-08-01 08:47 | NUR ---
SHIFT SUMMARY PT IS A&OX4, VSS, HYPOTENSIVE SYS <90, MAP WNL. ON BIPAP WITH 4L BLEED IN, O2 SATS >95%. C/O PAIN ON HIS LEGS AND BACK, REFUSED ANY PAIN MEDICATION. SCABS TO RIGHT FLANK AREA. NOOB THIS SHIFT. VOIDING IN URINAL WITH ASSISTANCE, NO BM THIS SHIFT. BED IN LOWEST POSITION, CALL LIGHT WITHIN REACH. ABLE TO MAKE NEEDS KNOWN. AIRBORNE PRECAUTIONS MAINTAINED FOR SHINGLES.
[2023-08-01] MEDS ORDERED: Piperacillin/Tazobactam Sod 3.375 GM in NS 50 ML IV SCH (12:00)
[2023-08-01] MEDS ORDERED: Ampicillin Sod/Sulbactam Sod 3 GM in NS 100 ML IV SCH (12:00)
--- NOTE | 2023-08-01 12:05 | NUR ---
No urine output this shift. Bladder scan of 199ml noted. Dr. Rice made aware. Continue to monitor output/scan. Dr. Edwards at bedside for complete opacification of left lung. Bipap remains on this shift. Pt states increased dyspnea without bipap. Pt instructed to lay on back or right side. Pt is able to pull himself up in bed and repostion to right side with min ast. Dr. Edwards spoke with RT to adjust bipap settings. Dr. Rice telephone call back with instructions to transfer pt to PCU. machine tack pullerTANA mc.
[2023-08-01] MEDS ORDERED: Ondansetron HCl 2 MG / ML 2ML Vial IV PRN (13:15)
--- NOTE | 2023-08-01 14:18 | NUR ---
PT ARRIVED TO PCU 18 AT ABOUT 1300 AFTER SETTELING HIM IN THE ROOM, AT ABOUT 1318 HE RIPPED OFF HIS MASK AND PUKED. I WAS IN THE ROOM, AND COMPOSITION WEATHERBOARD APPLIER RUMEN. I TOLD RUMEN TO GRAB A NASAL CANNULA QUICK, AND KAROL RN CAME IN TO SEE WHAT WAS GOING ON. SHE CALLED AMA TEAGUE RN, AND DR. CARDONA FOR AN ORDER OF ZOFRAN. THE PT WAS TURNING BLUE AND DESATURATING IN TO 70'S. I GOT HIM HOOKED UP TO 7LNC AND HE RECOVERED SP02 >93% WITHIN A MINUTE. DURING THIS THE PT'S HEART RATE TACHED UP AND HE WENT INTO AFIB RVR UP TO 150'S. THE PT STATED HE HAD NO WARNING OF NAUSEA BEFORE THE EMESIS. I CALLED DR. CARDONA TO UPDATE HER AND SHE ASKED FOR A MANNUAL BLOOD PRESSURE. WHEN TAKING MANNUAL I HAD ISSUES HEARING IT, I HAD NOEMI RN COME AND LISTEN AND SHE GOT 78/38, SHE GRABBED THE DOPPLER TO DOUBLE CHECK AND IT WAS READING IN THE 50'S SYSTOLIC. WE CALLED THE CHARGE NURSE PA RN TO DOUBLE CHECK AND SHE SAID SHE GOT "80 BEST" SYSTOLIC. AT THSI TIME DR. PRINCE CAME IN AND WAS CHECKING ON THE PT. HE WAS UPDATED ON THE AFIB RVR, EMESIS, HYPOTENSION, AND HOT THE PT HAS NOT BEEN ABLE TO VOID AND HE WAS BLADDER SCANNED ON MEDICAL FLOOR . HE WANTS THE PT TO RECIEVE 20 IV LASIX. AT ABOUT 1340 THE PT WAS PLACED BACK ON THE BIPAP. WE WAITED UNTIL THE ZOFRAN HAD SOME TIME TO BE IN HIS SYSTEM. SINCE BEING ON THE MASK HIS HEART RATE IS STARTING TO TREND BACK DOWN, BUT IS STILL AFIB 120'S-130'S . THE PT WILL BE TRANSFERING TO ICU. SEE NOTES FOR ANY UPDATES.
[2023-08-01] MEDS ORDERED: Furosemide 10 MG / ML 2ML Vial IV ONE (14:20)
--- NOTE | 2023-08-01 18:35 | NUR ---
ASSUMPTION OF CARE PT ARRIVED TO ICU FROM PCU, TX TO BED VIA LIFT SHEET. PT A&OX4, CALM AND COOPERATIVE WITH CARE. ON BIPAP, SEE RT CHARTING FOR SETTINGS, TOLERATING WELL, SATS >90%. ABLE TO TAKE BRIEF BREAKS FROM BIPAP FOR MEDICATIONS AND ICE CHIPS, REQUESTS BIPAP AFTER ABOUT 2 MINS. DOES DESAT TO THE MID 80'S ON NC @ 6LPM. A-FIB IN THE 110'S, DOWN TO 80'S NOW, DENIES CP. DOPPLER MANUAL BP CONFIRMED CORRELATION WITH RADIAL BP VIA MONITOR. UNABLE TO GET BED SCALE TO WORK, BORROWED LIFT SCALE FROM ER, PT WEIGHS 506 LBS, TOO LARGE FOR CT SCAN. DR. PRINCE NOTIFIED.
[2023-08-01] MEDS ORDERED: Ipratropium/Albuterol SulF 2.5-0.5MG/3 ML Amp INH ONE (19:15)
[2023-08-01] MEDS ORDERED: Ipratropium/Albuterol SulF 2.5-0.5MG/3 ML Amp INH PRN (19:15)
--- NOTE | 2023-08-01 20:00 | NUR ---
ASSUME CARE PT RESTING COMFORTABLY IN BED ON BIPAP AT THIS TIME. PT HAS NO COMPLAINTS OF PAIN AT THIS TIME, STATES BREATHING IS COMFORTABLE WITH BIPAP IN PLACE. PT HAS REDNESS ON UPPER CHEST WELL DRY PEELING SKIN PRESENT, MORE ON RIGHT UPPER CHEST AND SHOULDER AREAS. PT HAS [address] WITH NO GTTS AT THIS TIME. PT STATES BEING COMFORTABLE IN CURRENTLY POSITION AND DID NOT WISH TO BE REPOSITIONED AT THIS TIME. PLANS TO STAY ON BIPAP OVERNIGHT. PT DOES HAVE SIGNIFICANT EDEMA PRESENT IN BLE, PT STATES LEGS ARE TENDER WHEN ASSESSING EDEMA. PT BIPAP SETTINGS 20/14 WITH A RATE OF 14 AND 70% FIO2.
[2023-08-01] MEDS ORDERED: Lactobacil 2-S.Thermo-Bifido 1 1 Cap PO SCH (21:00)
[2023-08-02] VITALS (63 sets, daily range): BP systolic 64–131; BP diastolic 47–107
[2023-08-02 04:00] LABS: BASOPHILS ABSOLUTE AUTO 0.04 K/mm3 (0.00-0.23); BASOPHILS PERCENT AUTO 0 % (0-2); EOSINOPHILS ABSOLUTE AUTO 0.24 K/mm3 (0.00-0.68); EOSINOPHILS PERCENT AUTO 2 % (0-6); Hematocrit 41.2 % (37.0-53.0); Hemoglobin 12.8 g/dL (13.5-17.5); IMMATURE GRAN ABSOLUTE AUTO 0.06 K/mm3 (0.00-0.10); IMMATURE GRAN PERCENT AUTO 1 % (0-1); LYMPHOCYTES ABSOLUTE AUTO 1.41 K/mm3 (0.84-5.20); LYMPHOCYTES PERCENT AUTO 14 % (21-46); MONOCYTES PERCENT AUTO 14 % (4-13); Mean Corpuscular HGB 29.8 pg (26.0-34.0); Mean Corpuscular HGB Conc 31.1 g/dL (31.5-36.5); Mean Corpuscular Volume 96 fL (80-100); Mean Platelet Volume 10.9 fL (9.1-12.4); NEUTROPHILS ABSOLUTE AUTO 7.07 K/mm3 (1.96-9.15); NEUTROPHILS PERCENT AUTO 69 % (41-73); Platelet Count 251 K/mm3 (150-400); RDW Coefficient Variation 16.1 % (11.7-14.2); RDW Standard Deviation 56.6 fL (35.1-46.3); White Blood Cell Count 10.22 K/mm3 (4.00-11.30)
[2023-08-02 04:22] LABS: Albumin, Blood 2.6 g/dL (3.4-5.0); Albumin/Globulin Ratio 0.6 (0.8-1.8); Bilirubin, Total 2.4 mg/dL (0.1-1.0); Calcium, Blood 8.3 mg/dL (8.5-10.1); Creatinine, Blood 2.44 mg/dL (0.60-1.20); Globulin, Blood 4.4 g/dL (2.2-4.0); Potassium, Blood 4.6 mmol/L (3.5-5.5)
--- NOTE | 2023-08-02 06:26 | NUR ---
SHIFT SUMMARY PT RESTED COMFORTABLY OVERNIGHT. PT REMAINED ON BIPAP AT 20/14 RATE OF 14 AND FIO2 OF 70%. PT HAD NOT YET URINATED ON SHIFT, AT 0410 PT WAS BLADDER SCANNED WITH A RESULT OF 23ML ON THE SCANNER. MD KAUR NOTIFIED OF NO OUTPUT AND BLADDER SCAN RESULTS. SEE NEW ORDERS. PT DOES NOT ENDORSE NEEDING TO URINATE AT THIS TIME. PT DECLINED HALF OF TURNS OVERNIGHT, BUT DID AGREE TO BEING REPOSITIONED TO SUPINE OR RIGHT SIDE TOWARDS AM, SEE FLOWSHEET.
--- NOTE | 2023-08-02 08:00 | NUR ---
INITIAL ASSESSMENT PATIENT RESTING QUIETLY ON BIPAP UPON ENTERING ROOM. PATIENT ALERT AND ORIENTED X 4, AFEBRILE. PATIENT PLEASANT, CALM, COOPERATIVE. PATIENT WEAK WITH LIMITED RANGE OF MOTION. PATIENT DENIES PAIN. LUNGS DIMINISHED THROUGHOUT. PATIENT ON BIPAP 20/14 AND 70% FIO2 OR ON 6 L NC FOR SHORT BREAKS UNDER 10 MINUTES. PATIENT PREFERS TO BE ON BIPAP. SOB WITH EXERTION NOTED. PATIENT IN A. FIB, HR IN THE 90S. SBP IN THE 80S. 3+ EDEMA NOTED TO BLES. 1+ EDEMA NOTED TO ABDOMEN. ABD DISTENDED; PATIENT STATES NORMAL FOR HIM. PATIENT HAS HAD POOR APPETITE. DATE OF LAST BM 2 DAYS AGO PER DOCUMENTATION. PATIENT ANURIC. NIGHT RN REPORTED THAT PATIENT HAS NOT VOIDED IN OVER 24 HOURS AND THAT BLADDER SCAN SHOWED 23 MLS OF URINE IN BLADDER THIS AM. SKIN DUSKY, FRAGILE, DRY. SCATTERED SCABS AND REDDENED AREAS NOTED T/O BODY. SCABBED SHINGLE LESIONS NOTED TO R LATERAL SIDE OF ABD. BILAT HEELS REDDENED. EXCORATION ON BACK OF SCROTUM. BED LOW, CALL LIGHT IN REACH. CARE CONTINUES.
--- NOTE | 2023-08-02 08:30 | NUR ---
DR. PRINCE UPDATED ON PATIENT STATUS. INFORMED THAT NIGHT RN REPORT SOFT BPS IN NIGHT. INFORMED THAT PATIENT REPORTED HE HAD COUGHED UP MUCUS AND NOT VOMITED WHEN IN PCU BEFORE BROUGHT TO ICU. INFORMED THAT NARCOTICS AGENT REPORTED PATIENT HAS NOT URINATED IN OVER 24 HOURS AND THAT BLADDER SCAN SHOWED ONLY 23 MLS OF URINE IN BLADDER. INFORMED THAT CREATININE INCREASED THIS AM. INFORMED THAT 3+ EDEMA NOTED IN BLES. ORDER TO PLACE MARES RECEIVED.
[2023-08-02] MEDS ORDERED: Midodrine 5 MG Tab PO SCH (09:00)
[2023-08-02] MEDS ORDERED: Piperacillin/Tazobactam Sod 4.5 GM in NS 100 ML IV SCH (10:00)
[2023-08-02 10:04] LABS: Source, Urine Foley catheter
[2023-08-02 10:45] LABS: Appearance, Urine Hazy (Clear); Blood, Urine 1+ (Neg); Color, Urine Amber (P-Yellow); Glucose Qualitative, Urine Neg (Neg); Ketones, Urine 1+ (Neg); Leukocyte Esterase, Urine 1+ (Neg); Nitrite, Urine Pos (Neg); Protein, Urine 2+ (Neg); Specific Gravity, Urine 1.025 (1.003-1.022); Urobilinogen, Urine 3+ (Normal)
--- NOTE | 2023-08-02 11:53 | NUR ---
Received a t/c from pt's daughter Ama. She has talked with her dad, the structural biologist and bedside FORM LAYER. She requests a meeting with Palliative Care at pt's bedside, along with her brother at 5pm this afternoon. She states the patient has been making statements that he "just wants to be comfortable". She wonders if the pt didn't quite understand what his quality of life would look like when was extubated approximately 3 weeks ago. At that time, his family had made the decision to place him on comfort care upon extubation. However, the patient awoke and stated he wanted "everything done", including follow up care at rehab. The patient was recently transferred back to ICU, and is currently on bipap and pressers. He is able to talk with the mask on. At son and daughter's request, I will speak to patient prior to the meeting, as they are concerned he may not be completely honest with them in the room.
--- NOTE | 2023-08-02 12:00 | NUR ---
PATIENT AFEBRILE. HR IN THE 90S. SBP IN THE 80S. PATIENT ON BIPAP 20/14 AND FIO2 DECREASED TO 40% THIS AM. NO COMPLAINTS OF PAIN. COMPLETE BED BATH PERFORMED. NO OTHER ACUTE CHANGES TO NOTE ON AT THIS TIME. CARE CONTINUES.
[2023-08-02 12:44] LABS: Bilirubin, Urine 2+ (Neg)
[2023-08-02 12:46] LABS: Hyaline Casts 50-100 /lpf (0-2)
[2023-08-02 12:48] LABS: Calcium Oxalate Crystals Few /hpf
[2023-08-02 12:49] LABS: Red Blood Cells, Urine 0-2 /hpf (0-2)
[2023-08-02 12:50] LABS: Squamous Epithelial Cells Rare /hpf (Few)
[2023-08-02 12:59] LABS: Amorphous Mod (0-Heavy); Bacteria Many /hpf
[2023-08-02 13:00] LABS: Renal Epithelial Rare /hpf (0-Rare)
[2023-08-02] MEDS ORDERED: NS 1,000 ML IV ONE (13:20)
--- NOTE | 2023-08-02 16:00 | NUR ---
PATIENT AFEBRILE. HR IN THE 90S. SBP IN THE 90S. FIO2 AT 35%. NO OTHER ACUTE CHANGES TO NOTE ON AT THIS TIME. NO COMPLAINTS OF PAIN. CARE CONTINUES.
--- NOTE | 2023-08-02 17:35 | NUR ---
Met with patient at his bedside today prior to his children arriving. He tells me he does not wish to continue "fighting". Now that he has information regarding his current kidney function, he states he is ready to discuss comfort care. I did explain the process to him, and he states he's satisfied with the explanation. Once the pt's son and daughter arrived, along with pt's best friend and his brother, we discussed it again, this time with them present in the room. The patient requested I explain again what comfort care will entail. I did explain, and they did not have any questions. The patient made the decision to begin comfort care at noon tomorrow, and his family members agree to be here then. Both bedside RN and ICU charge nurse are aware.
[2023-08-02] MEDS ORDERED: NS 1,000 ML IV SCH (18:05)
--- NOTE | 2023-08-02 18:49 | NUR ---
SHIFT SUMMARY PATIENT REMAINED ALERT AND ORIENTED X 4, AFEBRILE. PATIENT HAD NO COMPLAINTS OF PAIN THIS SHIFT. PATIENT WEAK BUT ABLE TO HELP REPOSITION IN BED. PATIENT SOB WITH EXERTION. PATIENT REMAINED MOSTLY ON BIPAP . FIO2 DECREASED FROM 70% TO 35% THIS SHIFT. PATIENT ON 6 L NC FOR BREAKS. PATIENT REMAINED IN A. FIB, HR 80S TO LOW 100S. SBP 80S TO 120S. PITTING EDEMA NOTED TO BLES AND ABDOMEN. PATIENT DID NOT WANT ANY FOOD TODAY, ONLY ICE WATER. MARES PLACED THIS AM FOR ANURIA AND STRICT I AND O'S. MARES DRAINED TOTAL OF 120 MLS OF DARK TEA COLORED URINE THROUGHOUT ENTIRE SHIFT. NO CHANGES TO SKIN NOTED. PATIENT REPOSITIONED WHEN AGREEABLE. PATIENT HAD COMPLETE BED BATH TODAY. PATIENT HAD 1 L NS BOLUS AT 500 MLS/ HOUR THIS SHIFT. PATIENT ALSO STARTED ON NS AT 125 MLS/ HOUR X 2 L. US RENAL PERFORMED THIS SHIFT. URINE CULTURE SENT AFTER MARES INSERTION. OT AND PT WORKED WITH PATIENT. FAMILY IN AND OUT THROUGHOUT SHIFT. PATIENT HAD CONVERSATION WITH PALLIATIVE CARE WITH DAUGHTER AND SON AND STATED THAT HE WOULD LIKE TO SEE SOME FRIENDS AND THEN BE MADE COMFORT CARE AT NOON TOMORROW. BED LOW, CALL LIGHT IN REACH. REPORT WILL BE GIVEN TO ASSUMING DATA SCIENCES DIRECTOR NURSE SHORTLY.
--- NOTE | 2023-08-02 19:38 | NUR ---
ASSUMED CARE OF PT AT 1900. REPORT RECEIVED AT BEDSIDE. PT PRESENTS PRESENTS IN BED. FAMILY AND FRIENDS AT BEDSIDE. PT PT ALERT AND ORIENTED. THIS RN FAMILIAR WITH THIS PT FROM PREVIOUS TIMES WHILE IN ICU 10. PT IN NO APPARENT DISTRESS. WEARING BIPAP AT THIS TIME. WILL REVIEW CHART AND PLAN OF CARE FOR THIS PT.
--- NOTE | 2023-08-02 22:23 | NUR ---
MARES CATHETER DISCONTINUED PER PATIENT'S REQUEST. WAS NOT TOLERATING CATHETER. PT ALERT AND ORIENTED. ABLE TO CALL WHEN HE FEELS THE NEED TO URINATE. PT HAS ONLY 50 ML CONCENTRATED URINE IN BAG WHEN CATHETER WAS DISCONTINUED. PT STATES THIS HAS MADE HIM MUCH MORE COMFORTABLE.
[2023-08-03] VITALS (10 sets, daily range): BP systolic 91–115; BP diastolic 52–89
--- NOTE | 2023-08-03 04:41 | NUR ---
PT HAS SPOKEN OPENLY OF HIS DECISION TO PROGRESS TO COMFORT CARE AT NOON THIS DAY. PT STATES HE DOES NOT WANT TO CONTINUE WITH WEARING BIPAP AND WITH KIDNEY FAILURE. DEMONSTRATES GOOD UNDERSTANDING AND ACCEPTANCE OF END OF LIFE DECISION. WILL CONTINUE TO MONITOR PT, AND WILL REPORT OFF TO ONCOMING RN.
[2023-08-03 06:46] LABS: Magnesium, Blood 1.9 mg/dL (1.6-2.4)
[2023-08-03 06:49] LABS: Albumin, Blood 2.4 g/dL (3.4-5.0); Anion Gap 6 mmol/L (6-16); Blood Urea Nitrogen 46 mg/dL (8-24); Bun/Creatinine Ratio 14.1 (12.0-20.0); CO2, Blood 31 mmol/L (21-32); Calcium, Blood 8.2 mg/dL (8.5-10.1); Chloride, Blood 98 mmol/L (98-108); Creatinine, Blood 3.27 mg/dL (0.60-1.20); Glomerular Filtration Rate 21 (60-); Glucose, Blood 97 mg/dL (70-99); Phosphorus, Blood 5.3 mg/dL (2.5-4.9); Potassium, Blood 4.5 mmol/L (3.5-5.5); Sodium, Blood 135 mmol/L (136-145)
--- NOTE | 2023-08-03 08:17 | NUR ---
ASSUMED CARE OF ROSALINDA THIS AM AT 0700 AT BEDSIDE REPORT. ROSALINDA WAS SLEEPING AT THE TIME. HE HAS SINCE BEEN AWAKE AND ON THE BEDPAN, VISITING WITH STAFF AND FAMILY TO THE BEDSIDE. PT IS PLANNING ON "GOING TO COMFORT CARE" THIS NOON TIME. HE HAS DECLINED THE AM ANTIBIOTIC AND IS DISPLAYING ADEQUATE COPING MECHANISMS.
--- NOTE | 2023-08-03 10:08 | NUR ---
ROSALINDA IS VISITING WITH HIS FAMILY/FRIENDS, HE IS ASKING TO START THE PROCESS A BIT EARLIER THAN NOON. TANA BRUCE FROM PALLIATIVE IS EN ROUTE TO THE UNIT AND WE WILL BEGIN THE PROCESS. PT SEEMS A BIT MORE ANXIOUS AFTER TALKING WITH DR. PRINCE THIS AM. HE IS WANTING TO BE COMFORTABLE. ASSURANCE GIVEN.
[2023-08-03] MEDS ORDERED: Atropine Sulfate 1% Opth Soln 2ML BTL SL PRN (10:15)
[2023-08-03] MEDS ORDERED: LORazepam 1 MG Tab PO PRN (10:15)
[2023-08-03] MEDS ORDERED: Morphine Sulfate 20 MG/1ML 1 ML Oral Syringe SL PRN (10:15)
[2023-08-03] MEDS ORDERED: Haloperidol Lactate Inj. 5 MG/ML Injection IV PRN (10:15)
[2023-08-03] MEDS ORDERED: HYDROmorphone HCl/Pf 1MG SYR IV PRN (10:15)
[2023-08-03] MEDS ORDERED: LORazepam 2 MG/ML 1ML Injection IV PRN (10:15)
[2023-08-03] MEDS ORDERED: Morphine Sulfate 10 MG/ML 1MLSYR IV PRN (10:15)
[2023-08-03] MEDS ORDERED: Promethazine HCl 25 MG Tab PO PRN (10:15)
[2023-08-03] MEDS ORDERED: Scopolamine Hydrobromide Patch TOP PRN (10:15)
--- NOTE | 2023-08-03 10:17 | NUR ---
Pt verbalizes he is anxious, requests anxiety medication. Family is present, and supportive. There is one addition friend that hasn't arrived yet, and this is what patient is waiting on. Comfort orders placed, bedside RN to administer lorazepam now, then when pt is ready, will de-escalate care, changing bipap to n/c and medicate for patient comfort. Palliative care to remain available to patient and family for support. 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 His orthodoxy is Mu-ism, and he has stated he feels ready to make the transition.
[2023-08-03 11:56] LABS: BASOPHILS ABSOLUTE AUTO 0.05 K/mm3 (0.00-0.23); BASOPHILS PERCENT AUTO 0 % (0-2); EOSINOPHILS PERCENT AUTO 3 % (0-6); Hematocrit 39.3 % (37.0-53.0); IMMATURE GRAN ABSOLUTE AUTO 0.05 K/mm3 (0.00-0.10); IMMATURE GRAN PERCENT AUTO 0 % (0-1); LYMPHOCYTES ABSOLUTE AUTO 1.49 K/mm3 (0.84-5.20); LYMPHOCYTES PERCENT AUTO 13 % (21-46); MONOCYTES ABSOLUTE AUTO 1.85 K/mm3 (0.16-1.47); MONOCYTES PERCENT AUTO 16 % (4-13); Mean Corpuscular HGB Conc 30.5 g/dL (31.5-36.5); Mean Corpuscular Volume 95 fL (80-100); Mean Platelet Volume 10.8 fL (9.1-12.4); NEUTROPHILS ABSOLUTE AUTO 7.56 K/mm3 (1.96-9.15); NEUTROPHILS PERCENT AUTO 67 % (41-73); Platelet Count 252 K/mm3 (150-400); RDW Coefficient Variation 16.2 % (11.7-14.2); RDW Standard Deviation 57.2 fL (35.1-46.3); Red Blood Cell Count 4.14 M/mm3 (4.30-5.90)
--- NOTE | 2023-08-03 13:55 | NUR ---
"Spiritual Care | Comfort Care [facility] Pt. is on comfort care and is mostly non responsive. Met with family at bedside. Pastoral Care is given. Family verbalized [facility] as their choice for this Pts. post mortem care."
--- NOTE | 2023-08-03 15:10 | NUR ---
ROSALINDA HAS BEEN MEDICATED PER MAR, HE REMAINS UNRESPONSIVE. HE IS FOAMING IN HIS MOUTH AND HAS BEEN GIVEN ATROPINE AND SCOPALAMINE. FAMILY REMAINS AT BEDSIDE.
--- NOTE | 2023-08-03 17:00 | NUR ---
SUMMARY: ROSALINDA HAS BEEN OBTUNDED SINCE BEING MEDICATED AND OFF THE BIPAP SINCE AROUND NOON TIME. HE WAS MEDICATED WITH ATROPINE DROPS AND THEN GIVEN ROXINOL SL AROUND 1545, ORAL CARE HAD BEEN COMPLETED. AROUND 1615 SON AND DAUGHTER HAD STEPPED OUT AND THIS RN WENT IN TO CHECK ON HIM. HE WAS HAVING AGONAL RESPS AND HIS BODY WAS BECOMING MORE MOTTLED UP TO HIS CHEST. UPON AUSCULTATION AND OBSERVATION IT WAS ADVISED TO ASK THE SON AND DAUGHTER TO RETURN. TIME OF WAS CALLED BY THIS RN AND TANA MORE AT 1619. FAMILY PRESENT. ALLOWED TO SPEND TIME WITH THE PATIENT. PERSONAL BELONGINGS WERE GATHERED AND SENT HOME WITH [facility]REW PER DAUGHTER CHAYITO'S REQUEST. PT IS TO BE SENT TO [facility].
--- NOTE | 2023-08-03 17:14 | NUR ---
[facility]CHNIC[facility].
--- NOTE | 2023-08-03 17:15 | NUR ---
CALL TO DR. CARDONA TO NOTIFY OF PATIENT'S PASSING.
== END 2023-08-03 16:19 | DRG 871 ==
LOC: ER 18:53 → MEDS 21:58 → ICUE 21:58 → ERHOLD 21:58 → ICUE 07-13 00:39 → MEDS 07-22 17:37 → PCU 08-01 13:18 → ICUE 08-01 15:42
PROVIDERS: Emergency Medicine; Family Medicine; Internal Medicine; Internal Medicine Critical Care Medicine; Nurse Practitioner Acute Care; Student in an Organized Health Care Education/Training Program; ADMIT Internal Medicine
PROC: 5A1945Z Respiratory Ventilation, 24-96 Consecutive Hours (ICD-10-PCS; principal; 2023-07-13)
PROC: 0BH17EZ Insertion of Endotracheal Airway into Trachea, Via Natural or Artificial Opening (ICD-10-PCS; 2023-07-13)
PROC: 0T9B70Z Drainage of Bladder with Drainage Device, Via Natural or Artificial Opening (ICD-10-PCS; 2023-07-13)
PROC: 3E033XZ Introduction of Vasopressor into Peripheral Vein, Percutaneous Approach (ICD-10-PCS; 2023-07-13)
PROC: 3E03329 Introduction of Other Anti-infective into Peripheral Vein, Percutaneous Approach (ICD-10-PCS; 2023-07-13)
PROC: 02HV33Z Insertion of Infusion Device into Superior Vena Cava, Percutaneous Approach (ICD-10-PCS; 2023-07-13)
PROC: 4A133R1 Monitoring of Arterial Saturation, Peripheral, Percutaneous Approach (ICD-10-PCS; 2023-07-17)
PROC: 5A09557 Assistance with Respiratory Ventilation, Greater than 96 Consecutive Hours, Continuous Positive Airway Pressure (ICD-10-PCS; 2023-07-20)
PROC: 5A0935A Assistance with Respiratory Ventilation, Less than 24 Consecutive Hours, High Flow/Velocity Cannula (ICD-10-PCS; 2023-07-20)
DX: A41.9 Sepsis, unspecified organism (principal); I50.23 Acute on chronic systolic (congestive) heart failure; N17.0 Acute kidney failure with tubular necrosis; J18.9 Pneumonia, unspecified organism; J96.21 Acute and chronic respiratory failure with hypoxia; J96.22 Acute and chronic respiratory failure with hypercapnia; E87.20 Acidosis, unspecified; E66.2 Morbid (severe) obesity with alveolar hypoventilation; N39.0 Urinary tract infection, site not specified; Z68.44 Body mass index [BMI] 60.0-69.9, adult; I42.9 Cardiomyopathy, unspecified; J98.11 Atelectasis; Z66 Do not resuscitate; Z51.5 Encounter for palliative care; I50.82 Biventricular heart failure; B02.9 Zoster without complications; Z91.148 Patient's other noncompliance with medication regimen for other reason; I27.20 Pulmonary hypertension, unspecified; I50.810 Right heart failure, unspecified; I11.0 Hypertensive heart disease with heart failure; Z79.899 Other long term (current) drug therapy; R65.20 Severe sepsis without septic shock; E87.5 Hyperkalemia; F10.10 Alcohol abuse, uncomplicated; E87.6 Hypokalemia; E83.39 Other disorders of phosphorus metabolism; Z99.81 Dependence on supplemental oxygen; R54 Age-related physical debility; I48.0 Paroxysmal atrial fibrillation; Z98.84 Bariatric surgery status; D64.9 Anemia, unspecified; Z11.52 Encounter for screening for COVID-19; B96.89 Other specified bacterial agents as the cause of diseases classified elsewhere
CPT/HCPCS: 0241U; 31500; 36415; 36556; 36600; 51702; 71045; 76770; 80048; 80053; 80069; 81001; 82570; 82803; 83605; 83690; 83735; 83880; 84100; 84145; 84300; 84484; 84540; 85025; 85027; 85520; 85610; 85730; 87040; 87077; 87086; 87186; 87798; 93005; 93010; 93306; 94002; 94003; 94640; 94660; 94664; 94667; 94668; 94762; 96365-59; 96367-59; 96375-59; 96376-59; 97110; 97110-CQ; 97162; 97165; 97530; 99291-25; A9270; C1751; C9113; J0456; J0696; J1170; J1644; J1940; J1956; J2060; J2250; J2270; J2310; J2405; J2543; J2704; J3010; J3480; J7030; J7050; J7060; Q9957